=== PATIENT | female | born 1995 | race African-American/Black ===

== ENCOUNTER 2017-05-10 23:04 | Emergency (ER) | payer SELFPAY ==
[~2017-05-10] VITALS: Ht 162.6 cm; Wt 81.5 kg
[~2017-05-10 23:04] MED LIST: MACR100C2 PO
[2017-05-10 23:06] VITALS: BP 147/82; PULSE 98; RESP 18; TEMP 98.5; O2SAT 100
[2017-05-11] MEDS ORDERED: BACT800T5 PO (01:28)
--- NOTE | 2017-05-11 01:28 | PD ---
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 Patient reports it is getting progressively larger. Patient describes pain is a burning pressure-like in nature without radiation. Patient denies anything making it better. Patient denies doing anything for this. Denies any fevers, vaginal discharge, loss or change in bowel or bladder, abdominal pain, chest pain, shortness breath, or back pain. PFSH Past Medical History Diminished Hearing: No Immunizations Current: Yes ?: Not LMP: 04/14/17 : 2 Para: 1 Miscarriage: 1 Past Surgical History Section: Yes (x 1) Ear Surgery: Yes ( A CHILD) Gynecologic Surgery: Yes Tympanostomy Tube: Yes Social History Alcohol Use: No Tobacco Use: Yes (2PPD) Substance Use: Yes (SADAAK) Allergies-Medications (Allergen,Severity, Reaction): Coded Allergies: No Known Allergies (Unverified , 05/10/17) Reported Meds & Prescriptions Reported Meds & Active Scripts Active Bactrim DS (Sulfamethoxazole-Trimethoprim) 800-160 Mg Tab 1 Tab PO BID Review of Systems Except as stated in HPI: all other systems reviewed are Neg Physical Exam Narrative GENERAL: Well-developed, overly nourished, in no acute distress, and non-ill appearing. SKIN: Focused skin assessment warm and dry. HEAD: Atraumatic. Normocephalic. EYES: Pupils equal and round. EOMI. No scleral icterus. No injection or drainage. ENT: No nasal bleeding or discharge. Mucous membranes pink and moist. NECK: Trachea midline. Supple. No nuclear rigidity. RESPIRATORY: No accessory muscle use. No respiratory distress. GENITOURINARY: External genitalia shows a tender cyst of the right labia without erythema, induration, fluctuation. There is no obvious vaginal discharge appreciated. Exam is performed presence of the corporate staff accountant Madelyn at all times. MUSCULOSKELETAL: No obvious deformities. No clubbing. No cyanosis. No edema. Full range of motion. NEUROLOGICAL: Awake and alert. No obvious cranial nerve deficits. Motor grossly within normal limits. Normal speech. PSYCHIATRIC: Appropriate mood and affect; insight and judgment normal. Data Data Last Documented VS Vital Signs Date Time Temp Pulse Resp B/P Pulse Ox O2 Delivery O2 Flow Rate FiO2 05/10/17 23:06 98.5 98 18 147/82 100 Orders Mandatory Outpatient Referral (05/11/17 01:22) MDM Medical Decision Making Medical Screen Exam Complete: Yes Emergency Medical Condition: Yes Differential Diagnosis Bartholin's cyst, herpes, yeast infection, other Narrative Course Patient in no obvious distress upon re-evaluation. Patient was asked if they wanted to speak to my attending, which the patient did not wish to do at this time. Any questions/concerns in reference to patient diagnosis/condition discussed and clarified prior to patient's discharge. Reinforced sheer importance of close follow up with patient's primary physician or primary care clinic and [facility]PER[facility] HEL[facility]. Instructed patient to return to ED immediately, if symptoms return/worsen. Pt showed understanding of above instructions. Further instructions and recommendations were detailed in discharge paperwork. Pt ambulated without difficulty out of ED at discharge. Diagnosis Primary Impression: Labial cyst Referrals: [facility] Patient Instructions: General Instructions, Sitz Bath (GEN) Additional Instructions: Follow-up with your primary care physician and [facility]PER[facility] HEL[facility] in 3-5 days for reevaluation. Take all medication as prescribed. Use [id number] Tylenol and/or ibuprofen as needed for pain. Follow instructions on the packaging. Use sitz baths 2-3 times daily for symptomatic relief. Return to the emergency department if symptoms get worse. Med/Other Pt SpecificInfo: Prescription(s) given Scripts Sulfamethoxazole-Trimethoprim (Bactrim DS)800-160 Mg Tab1 Tab PO BID #20 TAB Ref 0 Prov:Kamille Ochoa DO 05/11/17 Disposition: 01 DISCHARGE HOME Condition: Stable Darion Fink May 11, 2017 01:28
== END 2017-05-11 01:42 | disposition home or self-care (01) ==
LOC: NEPD 23:04
DX: N90.7 Vulvar cyst (principal)
CPT/HCPCS: 99283

== ENCOUNTER 2017-05-28 05:23 | Emergency (ER) | payer SELFPAY ==
[~2017-05-28] VITALS: Ht 165.1 cm; Wt 75.0 kg
[~2017-05-28 05:23] MED LIST changes: +BACT800T5 PO; -MACR100C2 PO
[2017-05-28 05:25] VITALS: BP 149/103; PULSE 107; RESP 18; TEMP 98.4; O2SAT 99
[2017-05-28] MEDS ORDERED: oxyCODONE/ACETAMINOPHEN 5 MG/325 MG TAB PO ONE ×2 (07:30→14:45)
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
[2017-05-28 11:00] VITALS: BP 126/87; PULSE 86; RESP 18; TEMP 98.4; O2SAT 99
[2017-05-28] MEDS ORDERED: LIDOCAINE 1%/EPINEPHrine 1:100,000 SOLN 20 ML VIAL INFIL ONE ×2 (11:00→11:30)
[2017-05-28] MEDS ORDERED: LIDOCAINE 1%/EPINEPHrine 1:100,000 SOLN 30 ML VIAL ONE ×2 (11:21→13:21)
[2017-05-28] MEDS ORDERED: TRAM50TA PO (11:29)
[2017-05-28] MEDS ORDERED: NAPR500T PO (11:29)
--- NOTE | 2017-05-28 11:32 | PD ---
Physical Exam Narrative I was asked by Dr. Moreno to repair patient's laceration. Please see her documentation for full H&P. Data Data Last Documented VS Vital Signs Date Time Temp Pulse Resp B/P Pulse Ox O2 Delivery O2 Flow Rate FiO2 05/28/17 11:00 18 05/28/17 05:25 98.4 107 149/[address] Brain W/O Iv Contrast(Rout) (05/28/17 ) Ct Facial Bones W/O Iv Cont (05/28/17 ) Ed Urine Pregnancytest Poc (05/28/17 07:29) Hand, Complete ([id number]) (05/28/17 ) Wrist, Complete ([id number]) (05/28/17 ) Oxycodone-Acetamin 5-325 Mg (Percocet (05/28/17 07:30) Ct Cerv Spine W/O Contrast (05/28/17 ) Splint Or Brace Apply/Monitor (05/28/17 10:00) Fiberglass Splint Forearm Adul (05/28/17 ) Fiberglass Splint Forearm Adul (05/28/17 ) Sling Cradle Arm (05/28/17 ) Lidocai-Epi 1%-1:100,000 Inj (Xylocaine- (05/28/17 11:00) Lidocai-Epi 1%-1:100,000 Inj (Xylocaine- (05/28/17 11:21) MDM Supervised Visit with KIRSTEN: No Procedures Procedure Narrative LACERATION REPAIR LOCATION: Left temporal lobe LENGTH: Approximately 2 cm in total length NUMBER OF STITCHES/SIRIA: 4 siria REPAIR: Verbal consent was obtained. The area of the laceration was cleaned and prepped. The laceration was infiltrated with lidocaine with epi. The wound was copiously irrigated and explored without evidence of foreign body, bony involvement, ligament injury, tendon injury, or neurovascular injury. The wound was closed using siria. This was a single layer repair. The patient was advised to keep the affected area as clean and dry as possible using soap and water. Patient was advised to have siria removed in 5-7 days. There were no complications. Patient tolerated the procedure well. Diagnosis Primary Impression: Forehead laceration Additional Impression: Fracture, metacarpal Additional Instruction: Have siria removed in 5-7 days. Keep wound dry and clean as possible using soap and water. Do not soak or submerge wound. Scripts Naproxen 500 Mg [id number] Mg PO BID PRN (PAIN SCALE 4 TO 10) #10 TAB Ref 0 Prov:Fina Moreno MD 05/28/17 Tramadol 50 Mg Tab50 Mg PO Q6H PRN (PAIN) #10 TAB Prov:Fina Moreno MD 05/28/17 Disposition: 01 DISCHARGE HOME Condition: Stable Darion Fink May 28, 2017 11:32
[2017-05-28] MEDS ORDERED: LIDOCAINE HCL 1% PF 30 ML VIAL INFIL ONE (13:30)
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
[2017-05-28 15:00] VITALS: BP 121/89; PULSE 82; RESP 18; TEMP 98.4; O2SAT 99
== END 2017-05-28 15:44 | disposition home or self-care (01) ==
LOC: NED 05:23 → NEPE 15:44
DX: S01.81XA Laceration without foreign body of other part of head, initial encounter (principal); S62.323A Displaced fracture of shaft of third metacarpal bone, left hand, initial encounter for closed fracture; Y08.09XA Assault by strike by other specified type of sport equipment, initial encounter; F17.290 Nicotine dependence, other tobacco product, uncomplicated; F12.10 Cannabis abuse, uncomplicated
CPT/HCPCS: 12011; 26605; 70450; 70486; 72125; 73110; 73120; 73130; 84703

== ENCOUNTER 2017-06-04 08:30 | Emergency (ER) | payer SELFPAY ==
[~2017-06-04] VITALS: Ht 167.6 cm; Wt 85.0 kg
[~2017-06-04 08:30] MED LIST changes: -BACT800T5 PO; +NAPR500T PO; +TRAM50TA PO
[2017-06-04 08:31] VITALS: BP 119/69; PULSE 89; RESP 16; TEMP 99.9; O2SAT 100
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
== END 2017-06-04 09:45 | disposition home or self-care (01) ==
LOC: NEPK 08:30
DX: Z48.02 Encounter for removal of sutures (principal); S01.81XD Laceration without foreign body of other part of head, subsequent encounter; S62.323D Displaced fracture of shaft of third metacarpal bone, left hand, subsequent encounter for fracture with routine healing
CPT/HCPCS: 99281

== ENCOUNTER 2017-06-11 07:11 | Inpatient (IN) | payer SELFPAY ==
[~2017-06-11] VITALS: Ht 167.6 cm; Wt 81.1 kg
[2017-06-11] VITALS (9 sets, daily range): BP systolic 114–127; BP diastolic 57–74; PULSE 88–113; RESP 14–24; TEMP 98.3–100.4; O2SAT 97–99
[2017-06-11 07:56] LABS: BASOPHIL % 0.1 % (0.0-2.0); HEMATOCRIT 33.9 % (35.0-46.0); LYMPH % 4.5 % (9.0-44.0); LYMPHOCYTE # 1.4 TH/MM3 (1.0-4.8); MEAN CELL VOLUME 81.3 FL (80.0-100.0); MEAN CORPUSCULAR HEMOGLOBIN 26.1 PG (27.0-34.0); MEAN CORPUSCULAR HGB CONC 32.1 % (32.0-36.0); MONO % 2.5 % (0.0-8.0); NEUT % 92.9 % (16.0-70.0); PLATELET COUNT 356 TH/MM3 (150-450); RED BLOOD COUNT 4.17 MIL/MM3 (4.00-5.30); RED CELL DISTRIBUTION WIDTH 16.8 % (11.6-17.2); WHITE BLOOD COUNT 31.2 TH/MM3 (4.0-11.0)
[2017-06-11 07:58] LABS: HEMO FLAGS AUTO DIFF
--- NOTE | 2017-06-11 08:03 | PD ---
HPI Chief Complaint: Abdominal Pain Time Seen by Provider: 07:23 Travel History International Travel<30 days: No Contact w/Intl Traveler<30days: No Traveled to known affect area: No History of Present Illness HPI 21yo F with no significant PMH presents to the ED with c/o diffuse abdominal pain since yesterday. Denies any fever, chest pain, sob, n/v, vaginal bleeding or discharge, dysuria, hematuria or diarrhea. Pt denies any surgical history. PFSH Past Medical History Medical History: Denies Significant Hx Diminished Hearing: No Immunizations Current: Yes Influenza Vaccination: No ?: Not LMP: 06/09 : 2 Para: 1 Miscarriage: 1 Past Surgical History Section: Yes (x 1) Ear Surgery: Yes ( A CHILD) Gynecologic Surgery: Yes Tympanostomy Tube: Yes Social History Alcohol Use: No Tobacco Use: Yes (2 PPD) Substance Use: No (DENIES) Allergies-Medications (Allergen,Severity, Reaction): Coded Allergies: No Known Allergies (Unverified , 06/11/17) Reported Meds & Prescriptions Reported Meds & Active Scripts Active No Active Prescriptions or Reported Medications Review of Systems Except as stated in HPI: all other systems reviewed are Neg Physical Exam Narrative GENERAL: 21yo F not in distress. SKIN: Focused skin assessment warm/dry. HEAD: Atraumatic. Normocephalic. CARDIOVASCULAR: Regular rate and rhythm. No murmur appreciated. RESPIRATORY: No accessory muscle use. Clear to auscultation. Breath sounds equal bilaterally. GASTROINTESTINAL: Abdomen soft, mild tenderness to palpation diffusely. No rebound tenderness or guarding. MUSCULOSKELETAL: No obvious deformities. No clubbing. No cyanosis. No edema. NEUROLOGICAL: Awake and alert. No obvious cranial nerve deficits. Motor grossly within normal limits. Normal speech. PSYCHIATRIC: Appropriate mood and affect; insight and judgment normal. Data Data Last Documented VS Vital Signs Date Time Temp Pulse Resp B/P (MAP) Pulse Ox O2 Delivery O2 Flow Rate FiO2 06/11/17 11:14 93 16 117/65 (82) 99 Room Air 06/11/17 09:18 98.4 Orders Orders Complete Blood Count With Diff (06/11/17 07:27) Comprehensive Metabolic Panel (06/11/17 07:27) Lipase (06/11/17 07:27) Urinalysis - C+S If Indicated (06/11/17 07:27) Iv Access Insert/Monitor (06/11/17 07:27) Ecg Monitoring (06/11/17 07:27) Oximetry (06/11/17 07:27) Sodium Chloride 0.9% Flush (Ns Flush) (06/11/17 07:30) Ed Urine Pregnancytest Poc (06/11/17 07:27) Bhcg Screen Qualitative (06/11/17 07:27) Ketorolac Inj (Toradol Inj) (06/11/17 08:15) Blood Culture (06/11/17 09:04) Lactic Acid Sepsis Protocol (06/11/17 09:04) Ct Abd/Pel W Iv Contrast(Rout) (06/11/17 ) Piperacil-Tazo 3.375 Gm Premix (Zosyn 3. (06/11/17 09:15) Morphine Inj (Morphine Inj) (06/11/17 09:15) Sodium Chlor 0.9% 1000 Ml Inj (Ns 1000 M (06/11/17 09:15) Potassium Chloride (Kcl) (06/11/17 09:30) Iohexol 350 Inj (Omnipaque 350 Inj) (06/11/17 09:59) Cath For Specimen (06/11/17 11:06) Us Pelvis Comp Youth Specialist/Non-Preg (06/11/17 ) Azithromycin Powd Pack (Zithromax Powd P (06/11/17 11:15) Sodium Chlor 0.9% 1000 Ml Inj (Ns 1000 M (06/11/17 11:30) Sodium Chlor 0.9% 1000 Ml Inj (Ns 1000 M (06/11/17 11:30) Gc And Chlamydia Pcr (06/11/17 11:22) Wet Prep Profile (06/11/17 11:22) Urine Culture (06/11/17 11:50) Admit Order (Ed Use Only) (06/11/17 12:37) Labs Laboratory Tests Test 06/11/17 07:39 06/11/17 10:21 06/11/17 11:26 06/11/17 11:50 White Blood Count 31.2 TH/MM3 Red Blood Count 4.17 MIL/MM3 Hemoglobin 10.9 GM/DL Hematocrit 33.9 % Mean Corpuscular Volume 81.3 FL Mean Corpuscular Hemoglobin 26.1 PG Mean Corpuscular Hemoglobin Concent 32.1 % Red Cell Distribution Width 16.8 % Platelet Count 356 TH/MM3 Mean Platelet Volume 7.6 FL Neutrophils (%) (Auto) 92.9 % Lymphocytes (%) (Auto) 4.5 % Monocytes (%) (Auto) 2.5 % Eosinophils (%) (Auto) 0.0 % Basophils (%) (Auto) 0.1 % Neutrophils # (Auto) 29.0 TH/MM3 Lymphocytes # (Auto) 1.4 TH/MM3 Monocytes # (Auto) 0.8 TH/MM3 Eosinophils # (Auto) 0.0 TH/MM3 Basophils # (Auto) 0.0 TH/MM3 CBC Comment AUTO DIFF Differential Total Cells Counted 100 Neutrophils % (Manual) 80 % Band Neutrophils % 11 % Lymphocytes % 8 % Monocytes % 1 % Neutrophils # (Manual) 28.4 TH/MM3 Differential Comment FINAL DIFF MANUAL Platelet Estimate HIGH Platelet Morphology Comment NORMAL Ovalocytes 1+ Blood Smear Pathologist Review Blood Urea Nitrogen 10 MG/DL Creatinine 0.80 MG/DL Random Glucose 107 MG/DL Total Protein 7.7 GM/DL Albumin 3.9 GM/DL Calcium Level 8.6 MG/DL Alkaline Phosphatase 67 U/L Aspartate Amino Transf (AST/SGOT) 31 U/L Alanine Aminotransferase (ALT/SGPT) 28 U/L Total Bilirubin 0.8 MG/DL Sodium Level 138 MEQ/L Potassium Level 3.2 MEQ/L Chloride Level 106 MEQ/L Carbon Dioxide Level 22.7 MEQ/L Anion Gap 9 MEQ/L Estimat Glomerular Filtration Rate 110 ML/MIN Lipase 49 U/L Beta HCG, Qualitative LESS THAN 1 MIU/ML Lactic Acid Level 0.6 mmol/L Clue Cells (Wet Prep) NONE SEEN Vaginal Trichomonas (Wet Prep) NONE SEEN Vaginal Yeast (Wet Prep) NONE SEEN Chlamydia trachomatis DNA (PCR) NOT DETECTED Neisseria gonorrhoeae DNA (PCR) DETECTED Urine Color YELLOW Urine Turbidity CLEAR Urine pH 6.0 Urine Specific [place] GREATER THAN 1.050 Urine Protein 30 mg/dL Urine Glucose (UA) NEG mg/dL Urine Ketones 80 mg/dL Urine Occult Blood SMALL Urine Nitrite POS Urine Bilirubin NEG Urine Urobilinogen LESS THAN 2.0 MG/DL Urine Leukocyte Esterase SMALL Urine RBC 6 /hpf Urine WBC 21 /hpf Urine Squamous Epithelial Cells 4 /hpf Urine Bacteria FEW /hpf Urine Mucus MOD /lpf Microscopic Urinalysis Comment CULTURE INDICATED MDM Medical Decision Making Medical Screen Exam Complete: Yes Emergency Medical Condition: Yes Differential Diagnosis Gastritis vs. viral syndrome Narrative Course 21yo F with abdominal pain that is diffuse. Labs reviewed, leukocytosis at 31.2. Mild hyponatremia at 3.2, replaced orally. Lipase normal. negative. Lactic acid was added and it was normal. Pt empirically given NS IVF and zosyn. Pt was still unable to give urine so cath was obtained and pt is clinically dry. Pt given NS IVF x2 more. Pelvic exam was added and there was some white vaginal discharge. Very mild CMT. No adnexal tenderness. Given the elevated leukocyte, will obtain US transvaginal to r/o ovarian abscess. US pelvis unremarkable. Azithromycin empirically added. UA finally obtained and showed positive nitrite. This is likely source of abdominal pain. Wet prep negative. CTa/p showed right renal cyst, simple. Discussed with resident physicians and accepted to their service. Critical Care Narrative Aggregate critical care time was 50 minutes. Time to perform other separately billable procedures was not included in the critical care time. My time did not include minutes spent treating any other patients simultaneously or on activities that did not directly contribute to the patient's treatment. The services I provided to this patient were to treat and/or prevent clinically significant deterioration that could result in: cardiovascular collapse or . I provided critical care services requiring my management, as noted below: Chart data review, documentation time, medication orders and management, vital sign assessments/reviewing monitor data, ordering and reviewing lab tests, ordering and interpreting/reviewing x-rays and diagnostic studies, care of the patient and discussion of the patient with the admitting physicians. Diagnosis Primary Impression: Urinary tract infection Qualified Codes: N39.0 - Urinary tract infection, site not specified; R31.9 - Hematuria, unspecified Admitting Information Admitting Physician Requests: Admit Scripts No Active Prescriptions or Reported Meds Laura Mosqueda DO Jun 11, 2017 08:03
[2017-06-11 08:09] LABS: ANION GAP 9 MEQ/L (5-15); AST (GOT) 31 U/L (15-37); BICARBONATE 22.7 MEQ/L (21.0-32.0); BLOOD UREA NITROGEN 10 MG/DL (7-18); CHLORIDE 106 MEQ/L (98-107); GLOMERULAR FILTRATION RATE 110 ML/MIN (>89); POTASSIUM 3.2 MEQ/L (3.5-5.1); SODIUM (NA) 138 MEQ/L (136-145)
[2017-06-11] MEDS ORDERED: KETOROLAC TROMETHAMINE 30 MG/ML (IVP) VIAL IV PUSH ONE (08:15)
[2017-06-11 08:20] LABS: ALKALINE PHOSPHATASE 67 U/L (45-117); ALT (GPT) 28 U/L (10-53); TOTAL BILIRUBIN ADULT 0.8 MG/DL (0.2-1.0)
[2017-06-11 08:22] LABS: BHCG SCREEN QUALITATIVE LESS THAN 1 MIU/ML (0-5)
[2017-06-11 08:42] LABS: BANDS 11 % (0-6); NEUTROPHIL # MANUAL DIFF 28.4 TH/MM3 (1.8-7.7); POLYS (SEG NEUTROPHILS) 80 % (16-70); WBC DIFF SAMPLE 100
[2017-06-11 08:43] LABS: OVALOCYTES 1+ (NORMAL); PLATELET ESTIMATE SMEAR HIGH (NORMAL); PLATELET MORPHOLOGY NORMAL (NORMAL); SCAN/DIFF FINAL DIFF MANUAL
[2017-06-11] MEDS: SODIUM CHLORIDE 0.9% FLUSH 10 ML FLUSH IV FLUSH PRN ×2 (08:47→10:23)
[2017-06-11] MEDS ORDERED: SODIUM CHLOR 0.9% 1000 ML INJ 1,000 ML IV ONE ×3 (09:15→11:30)
[2017-06-11] MEDS ORDERED: PIPERACIL-TAZO 3.375 GM PREMIX 50 ML IV ONE (09:15)
[2017-06-11] MEDS ORDERED: MORPHINE SULFATE 4 MG/ML INJ IV PUSH ONE (09:15)
[2017-06-11] MEDS ORDERED: POTASSIUM CHLORIDE 20 MEQ CONTROLLED RELEASE TAB PO ONE (09:30)
[2017-06-11] MEDS ORDERED: IOHEXOL 350 MG/ML 10 ML VIAL (for RAD DIAG) IVCONTRAST ONE (09:59)
--- NOTE | 2017-06-11 10:18 | RADRPT ---
EXAM DATE/TIME: 06/11/2017 09:53 [facility] COMPARISON: No previous studies available for comparison. INDICATIONS : Diffuse abdominal pain. IV CONTRAST: 85 cc Omnipaque 350 (iohexol) IV ORAL CONTRAST: No oral contrast ingested. RADIATION DOSE: 9.96 CTDIvol (mGy) MEDICAL HISTORY : None SURGICAL HISTORY : None. ENCOUNTER: Initial ACUITY: 2 days PAIN SCALE: 4/10 LOCATION: Bilateral abdomen TECHNIQUE: Volumetric scanning of the abdomen and pelvis was performed. Using automated exposure control and ad justment of the mA and/or kV according to patient size, radiation dose was kept as low as reasonably achievable to obtain optimal diagnostic quality images. DICOM format image data is available electro nically for review and comparison. FINDINGS: There is bilateral L5 spondylolysis with trace spondylolisthesis of L5 on S1. Lung bases are clear. N o pleural or pericardial effusions are identified. Liver, gallbladder, kidneys, spleen, pancreas unre markable. There is a cyst at the midpole of the right kidney identified measuring 3 x 1 cm in AP dime nsion. The urinary bladder, uterus and adnexa are unremarkable. Small bowel, large bowel and appendix are normal. No inflammatory changes are identified in the abdomen or pelvis. CONCLUSION: Right renal cyst, simple in appearance. L5 spondylolysis. Lai Segura MD on June 11, 2017 at 10:13 Board Certified Radiologist. This report was verified electronically.
[2017-06-11] MEDS ORDERED: AZITHROMYCIN PWD FOR SUSP 1 GM PACKET PO ONE (11:15)
[2017-06-11 12:06] LABS: BACTERIA, URINE FEW /hpf; BLOOD, URINE SMALL (NEG); COMMENT (UR) CULTURE INDICATED; CULTURE IF INDICATED CULTURE INDICATED; GLUCOSE,URINE NEG (NEG); KETONE, URINE 80 mg/dL (NEG); MUCUS URINE MOD /lpf (OCC); NITRITE,URINE POS (NEG); SQUAMOUS EPITHELIAL CELL URINE 4 /hpf (0-5); URINE COLOR YELLOW (YELLW/STRAW)
--- NOTE | 2017-06-11 13:02 | RADRPT ---
EXAM DATE/TIME: 06/11/2017 11:24 [facility] COMPARISON: No previous studies available for comparison. INDICATIONS : Left pelvic pain. Leukocytosis, possible tubo-ovarian abscess. MEDICAL HISTORY : Pelvic pain. SURGICAL HISTORY : section. Ear surgery. Tympanostomy tube. ENCOUNTER: Initial ACUITY: 1 day PAIN SCORE: 8/10 LOCATION: Bilateral pelvis MEASUREMENTS: UTERUS: 9.6 x 5.2 x 3.9 cm ENDOMETRIAL STRIPE: 7 mm RIGHT OVARY: 3.0 x 2.8 x 2.3 cm LEFT OVARY: 3.2 x 2.6 x 2.6 cm FINDINGS: UTERUS: The myometrium has homogeneous echotexture without mass. RIGHT OVARY: Ovary contains no mass or significant cystic lesion. LEFT OVARY: Ovary contains no mass or significant cystic lesion. MISCELLANEOUS: No free fluid. There is some echogenic debris within the urinary bladder of uncertain etiology CONCLUSION: 1. Echogenic debris within the urinary bladder of uncertain etiology. 2. Otherwise, uterus and ovaries are sonographically normal. Jaime Esqueda MD on June 11, 2017 at 12:58 Board Certified Radiologist. This report was verified electronically.
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
[2017-06-11] MEDS ORDERED: SODIUM CHLORIDE 0.9% FLUSH 10 ML FLUSH IV FLUSH PRN ×2 (14:15→15:00)
[2017-06-11] MEDS ORDERED: ACETAMINOPHEN 325 MG TAB PO PRN (15:00)
[2017-06-11] MEDS ORDERED: IBUPROFEN 600 MG TAB PO PRN (15:00)
[2017-06-11] MEDS ORDERED: PHENAZOPYRIDINE HCL 200 MG TAB PO PRN (15:00)
[2017-06-11] MEDS ORDERED: cloNIDine HCL 0.1 MG TAB PO PRN (15:30)
[2017-06-11] MEDS ORDERED: RESP: ALBUTEROL 2.5 MG/IPRATROPIUM 0.5 MG NEB (PRN) NEB (15:30)
[2017-06-11] MEDS ORDERED: LOPERAMIDE HCL 2 MG CAP PO PRN (15:30)
[2017-06-11] MEDS ORDERED: DOCUSATE SODIUM 50 MG/SENNA 8.6 MG TAB PO PRN (15:30)
[2017-06-11 16:11] LABS: CHLAMYDIA PCR NOT DETECTED (NOT DETECT); NEISSERIA PCR DETECTED (NOT DETECT)
[2017-06-11] MEDS: LACTOBACILLUS ACIDOPHILUS TAB PO SCH (19:11)
[2017-06-11] MEDS: SODIUM CHLOR 0.9% 1000 ML INJ 1,000 ML IV SCH ×2 (19:11→21:38)
[2017-06-11] MEDS: SODIUM CHLORIDE 0.9% FLUSH 10 ML FLUSH IV FLUSH SCH (20:59)
[2017-06-11] MEDS ORDERED: SULFAMETHOXAZOLE-TRIMETHOPRIM DS 800-160 MG TAB PO SCH (21:00)
[2017-06-11] MEDS ORDERED: SODIUM CHLORIDE 0.9% FLUSH 10 ML FLUSH IV FLUSH SCH (21:00)
[2017-06-11] MEDS: HEPARIN SODIUM - SQ 10,000 UNITS/ML VIAL SQ SCH (22:21)
[2017-06-11] MEDS: DOXYCYCLINE HYCLATE 100 MG CAP PO SCH (23:49)
[2017-06-11] MEDS: KETOROLAC TROMETHAMINE 30 MG/ML (IVP) VIAL IVP PRN (23:49)
[2017-06-11] MEDS: ONDANSETRON HCL 4 MG/2 ML VIAL IV PRN (23:49)
[2017-06-12] VITALS: BP 118/60; PULSE 74; RESP 18; TEMP 98.1; O2SAT 98
[2017-06-12] MEDS: ceFOXitin INJ 2 GM in SODIUM CHLORIDE 0.9% INJ 100 ML IV SCH ×3 (00:12→11:22)
[2017-06-12 04:00] VITALS: BP 127/75; PULSE 78; RESP 18; TEMP 97.6; O2SAT 93
[2017-06-12] MEDS: SODIUM CHLOR 0.9% 1000 ML INJ 1,000 ML IV SCH ×6 (04:18→22:15)
[2017-06-12] MEDS: HEPARIN SODIUM - SQ 10,000 UNITS/ML VIAL SQ SCH ×3 (06:09→22:44)
[2017-06-12 06:17] LABS: AUTOMATED NEUTROPHIL # 19.5 TH/MM3 (1.8-7.7); BASOPHIL # 0.1 TH/MM3 (0-0.2); BASOPHIL % 0.3 % (0.0-2.0); EOSINOPHIL # 0.1 TH/MM3 (0-0.4); EOSINOPHIL % 0.6 % (0.0-4.0); HEMATOCRIT 29.6 % (35.0-46.0); HEMO FLAGS DIFF FINAL; LYMPHOCYTE # 3.1 TH/MM3 (1.0-4.8); MEAN CELL VOLUME 82.3 FL (80.0-100.0); MEAN CORPUSCULAR HEMOGLOBIN 26.4 PG (27.0-34.0); MEAN CORPUSCULAR HGB CONC 32.1 % (32.0-36.0); NEUT % 82.1 % (16.0-70.0); PLATELET COUNT 263 TH/MM3 (150-450); RED CELL DISTRIBUTION WIDTH 17.4 % (11.6-17.2); WHITE BLOOD COUNT 23.8 TH/MM3 (4.0-11.0)
[2017-06-12] MEDS: ONDANSETRON HCL 4 MG/2 ML VIAL IV PRN (06:24)
[2017-06-12 06:52] LABS: BICARBONATE 22.3 MEQ/L (21.0-32.0)
[2017-06-12 06:58] LABS: POTASSIUM 2.9 MEQ/L (3.5-5.1)
[2017-06-12] MEDS: SODIUM CHLORIDE 0.9% FLUSH 10 ML FLUSH IV FLUSH SCH ×2 (07:22→20:18)
[2017-06-12 07:55] VITALS: PULSE 77
[2017-06-12 08:00] VITALS: BP 141/88; PULSE 90; RESP 20; TEMP 98.1; O2SAT 98
[2017-06-12] MEDS: LACTOBACILLUS ACIDOPHILUS TAB PO SCH ×3 (08:08→17:55)
[2017-06-12] MEDS: DOXYCYCLINE HYCLATE 100 MG CAP PO SCH (08:08)
[2017-06-12] MEDS: ACETAMINOPHEN/HYDROcodone 325 MG/5 MG TAB PO PRN ×2 (10:03→14:19)
[2017-06-12] MEDS ORDERED: POTASSIUM CHLORIDE 10 MEQ CAP PO ONE (11:00)
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
[2017-06-12] MEDS ORDERED: cefTRIAXone INJ 1,000 MG in SODIUM CHLORIDE 0.9% INJ 100 ML IV SCH (15:00)
[2017-06-12 16:00] VITALS: BP 142/74; PULSE 84; RESP 19; TEMP 98; O2SAT 99
[2017-06-12 20:00] VITALS: BP 135/74; PULSE 91; PULSE 95; RESP 18; TEMP 99.7; O2SAT 99
[2017-06-12] MEDS: KETOROLAC TROMETHAMINE 30 MG/ML (IVP) VIAL IVP PRN (20:16)
[2017-06-13] VITALS (7 sets, daily range): BP systolic 119–139; BP diastolic 63–92; PULSE 69–93; RESP 16–18; TEMP 97.3–99.3; O2SAT 94–100
[2017-06-13] MEDS: SODIUM CHLOR 0.9% 1000 ML INJ 1,000 ML IV SCH ×2 (01:48→17:30)
[2017-06-13] MEDS: HEPARIN SODIUM - SQ 10,000 UNITS/ML VIAL SQ SCH ×3 (05:41→21:55)
[2017-06-13 08:26] LABS: AUTOMATED NEUTROPHIL # 10.8 TH/MM3 (1.8-7.7); BASOPHIL % 0.1 % (0.0-2.0); EOSINOPHIL % 0.4 % (0.0-4.0); HEMATOCRIT 28.2 % (35.0-46.0); HEMO FLAGS DIFF FINAL; LYMPH % 12.9 % (9.0-44.0); LYMPHOCYTE # 1.7 TH/MM3 (1.0-4.8); MEAN CELL VOLUME 80.9 FL (80.0-100.0); MEAN CORPUSCULAR HEMOGLOBIN 25.6 PG (27.0-34.0); MEAN CORPUSCULAR HGB CONC 31.7 % (32.0-36.0); MONO % 5.2 % (0.0-8.0); NEUT % 81.4 % (16.0-70.0); PLATELET COUNT 279 TH/MM3 (150-450); RED BLOOD COUNT 3.49 MIL/MM3 (4.00-5.30); RED CELL DISTRIBUTION WIDTH 16.9 % (11.6-17.2); WHITE BLOOD COUNT 13.3 TH/MM3 (4.0-11.0)
[2017-06-13] MEDS: SODIUM CHLORIDE 0.9% FLUSH 10 ML FLUSH IV FLUSH SCH ×2 (08:49→21:56)
[2017-06-13] MEDS: LACTOBACILLUS ACIDOPHILUS TAB PO SCH ×3 (08:49→17:29)
[2017-06-13] MEDS: ACETAMINOPHEN/HYDROcodone 325 MG/5 MG TAB PO PRN ×3 (08:50→21:55)
[2017-06-13 08:56] LABS: BICARBONATE 20.8 MEQ/L (21.0-32.0)
[2017-06-13 09:27] LABS: POTASSIUM 2.9 MEQ/L (3.5-5.1)
[2017-06-13] MEDS ORDERED: POTASSIUM CHLORIDE 10 MEQ CONTROLLED RELEASE TAB PO ONE ×2 (10:00→15:00)
[2017-06-13] MEDS ORDERED: SULFAMETHOXAZOLE-TRIMETHOPRIM DS 800-160 MG TAB PO SCH (10:00)
--- NOTE | 2017-06-13 10:37 | HHI.FPPN ---
Subjective Remarks Patient seen and examined this morning for medical team. No acute events overnight per nursing staff. Patient remained afebrile overnight with maximum temperature of 99.7. Patient continues to complain of ABD and suprapubic pain. She also endorses multiple episodes of watery diarrhea overnight without blood. Medical team explained her UTI will need further evaluation by infectious disease as the E. coli is ESBL positive. We also counseled her on illicit drug cessation. She states that she will "need help to stop using Flakka," but does have interest in stopping. Otherwise she has no other complaints. She denies any fevers, chills, SOB, chest pain, or calf tenderness. (Liang Garcia MD R2) Objective Vitals Vital Signs Date Time Temp Pulse Resp B/P (MAP) Pulse Ox O2 Delivery O2 Flow Rate FiO2 06/13/17 08:46 Room Air 06/13/17 08:00 99.0 93 18 139/63 (88) 94 06/13/17 04:00 98.2 86 18 119/67 (84) 95 06/13/17 04:00 Room Air 06/13/17 00:00 Room Air 06/13/17 00:00 99.3 83 16 128/83 (98) 100 06/12/17 20:00 91 06/12/17 20:00 99.7 95 18 135/74 (94) 99 06/12/17 20:00 Room Air 06/12/17 16:00 98.0 84 19 142/74 (96) 99 06/12/17 12:34 Room Air 21 I/O 06/12/17 06/12/17 06/12/17 06/13/17 06/13/17 06/13/17 06:59 14:59 22:59 06:59 14:59 22:59 Intake Total 1200 ml 120 ml 860 ml 1720 ml Output Total 550 ml 425 ml Balance 1200 ml 120 ml 310 ml 1295 ml Intake Oral 120 ml 760 ml 720 ml IV Total 1200 ml 100 ml 1000 ml Output Urine Total 550 ml 425 ml # Voids 2 # Bowel Movements 0 (Liang Garcia MD R2) Result Diagram: 06/13/17 0749 06/13/17 0749 Objective Remarks GENERAL: Well-nourished, well-developed female lying in bed in no acute distress. SKIN: Warm and dry. No rash. Bilateral black eyes. HEENT: Normocephalic with left lateral scalp wound. Wound healing appropriately without signs of infection. EOMI. No rhinorrhea. MMM. No JVD or LAD appreciated. CARDIOVASCULAR: Regular rate and rhythm without obvious murmurs, gallops, or rubs. RESPIRATORY: Clear to auscultation bilaterally with no CRW. No increased work of breathing. GASTROINTESTINAL: ABD soft and tender to moderate palpation in all four quadrants with suprapubic tenderness. Positive bowel sounds. No masses appreciated. MUSCULOSKELETAL: No cyanosis or edema. Strength grossly WNL. No calf tenderness. Left hand with obvious swelling. BACK: Nontender without obvious deformity. No CVA tenderness. NEURO/PSYCH: Afocal. Awake, alert, and oriented x3. Normal speech and judgement. (Liang Garcia MD R2) A/P Assessment and Plan Ms. Mercedes is a 21 y/o F with no significant past medical history presenting to the ER with diffuse abdominal pain secondary to pyelonephritis versus PID. Discharge Planning Pending infectious disease recommendation as she has an ESBL Escherichia coli urinary tract infection. (Liang Garcia MD R2) Attending Attestation Patient seen and examined. Case reviewed and discussed with the resident team. Agree with plan of care as discussed with me and documented in the resident note. she appears "brighter" in her affect today though she still complains about abdominal pain some of which could be cramping from her diarrhea. fortunately, her blood was clear. appreciate help ID with her ESBL. can ask case management for local resources available for assisting drug abusers (Jennifer Houston MD) Problem List: (1) Pyelonephritis ICD Codes: N12 - Tubulo-interstitial nephritis, not specified as acute or chronic Status: Acute Plan: Patient presenting with dysuria, incontinence, diffuse abdominal pain, and nausea/vomiting with UA concerning for UTI. -Abdominal/pelvis CT: Right renal cysts, simple in appearance. L5 spondylosis. -Pelvic ultrasound: Echogenic debris within the urinary bladder of uncertain etiology. Otherwise, uterus and ovaries are sonographically normal. -CBC: WBC 31.2 -CMP: Potassium 3.2 -UA: Specific gravity greater than 1.05, ketones 80, small occult blood, positive nitrite, small leukocyte esterase, 6 rbc, 21 WBC, few bacteria -Lipase: 49 -Beta hCG: Less than 1 -Lactic acid: 0.6 -Blood cultures 2: Negative to date -Urine culture: ESBL positive Escherichia coli (sensitive to Bactrim) -GC and chlamydia PCR: Chlamydia negative, gonorrhea positive (treated with Rocephin and azithromycin in ER) -Wet prep: Negative -Infectious disease consulted for ESBL positive UTI, appreciate recommendations Medications: -Zosyn, ceftriaxone, and 1 g of azithromycin given in ER -Cefoxitin x3 and doxycycline x2 given for PID coverage, discontinued as ER evaluation for PID was negative -Toradol and morphine given in ER -Bactrim DS twice a day as culture is sensitive -Pyridium 200 mg 3 times a day -Normal saline at 100 mL per hour -Ibuprofen when necessary for pain 1-5 -[place] 5-325 when necessary for pain 6-10 -Toradol when necessary for breakthrough pain (2) Leukocytosis ICD Codes: D72.829 - Elevated white blood cell count, unspecified Status: Acute Plan: Patient with extensive leukocytosis to 31.2 -CBC: WBC 31.2 with neutrophils of 92.9% on admission, currently downtrending -Blood smear: Negative for abnormal process -Please see plan as above -C. difficile: Pending (3) Nutrition, metabolism, and development symptoms ICD Codes: R63.8 - Other symptoms and signs concerning food and fluid intake Status: Acute Plan: -Fluids: Normal saline at 100 mL per hour -Diet: Regular as tolerated -Electrolytes: Hypokalemia, replaced, repeat BMP at 1900 -Prophylaxis: DuoNeb's when necessary for shortness of breath, docusate when necessary for constipation, loperamide when necessary for diarrhea, clonidine when necessary for blood pressure greater than 180/100, Vistaril when necessary for insomnia, Tylenol when necessary for fever (4) No contraindication to deep vein thrombosis (DVT) prophylaxis ICD Codes: Z78.9 - Other specified health status Status: Acute Plan: -Heparin 5000 units every 8 hours -SCD/TEDs (Liang Garcia MD R2) Problem Qualifiers (1) Leukocytosis: Qualified Codes: D72.825 - Bandemia Liang Garcia MD R2 Jun 13, 2017 10:37 Jennifer Houston MD Jun 13, 2017 13:59
[2017-06-13] MEDS: KETOROLAC TROMETHAMINE 30 MG/ML (IVP) VIAL IVP PRN (12:09)
[2017-06-13] MEDS ORDERED: MISCELLANEOUS PHARMACY INFORMATION XX PRN ×2 (13:30)
[2017-06-13] MEDS ORDERED: ASP: Other exception documentation: ( ) PRN (13:30)
--- NOTE | 2017-06-13 13:50 | MB ---
cc: ALEJANDRA PAGAN MD DATE OF CONSULTATION: 06/13/[address] Garcia. REASON FOR CONSULTATION A 21-year-old with E-coli ESBL positive pyelonephritis. HISTORY OF PRESENT ILLNESS This is a 21-year-old black female who presented to the emergency department on 06/11 with abdominal pain of a diffuse nature. The patient states that the pain began suddenly. She reported the pain was as high as 10 over 10 scale and mostly over the suprapubic region. She reportedly was having problems with urination for 2 weeks, mostly dysuria. She developed nausea, vomiting and worsening abdominal pain on the night before she presented to the emergency department. She was evaluated and tested positive for gonorrhea. Urine culture was also obtained and came back showing ESBL E-coli. The urinalysis contained 21 white cells and was nitrite positive. The patient notes that she is having loose stools. She reports to me that she has diarrhea today. She also has poor appetite and states that whenever she eats she feels like she has to use the bathroom. She denies fever or chills. CT scan of the abdomen showed a simple renal cyst. This was noted to be located at the mid pole of the right kidney. A pelvic ultrasound revealed echogenic debris within the urinary bladder. The patient tells me that she still has urinary urgency and burning on urination. PAST MEDICAL HISTORY Denies past medical illnesses. ALLERGIES NO KNOWN DRUG ALLERGIES. MEDICATIONS 1. Bactrim. 2. Vistaril. 3. Lactinex. 4. Toradol. 5. [place] 5. 6. Zofran. SOCIAL HISTORY The patient smokes half-a-pack of cigarettes a day. She denies alcohol use. She uses illicit drugs in the form of Flakka which she smokes. She lives with her mom and step dad and her daughter. FAMILY HISTORY Noncontributory. REVIEW OF SYSTEMS Pertinent as mentioned above. Otherwise, negative on 10-point review. PHYSICAL EXAMINATION GENERAL: She is a well-developed female who is in no acute distress. She is awake and alert and oriented. VITAL SIGNS: Temperature 97.3, BP 128/72, respirations 18, heart rate 80. HEENT: Head is atraumatic. Extraocular movements grossly intact. Pupils reactive to light without icterus. Oropharynx no visible lesions. NECK: Supple. No adenopathy. LUNGS: Clear breath sounds. HEART: Regular rate and rhythm. No murmurs. No rubs. No gallops. ABDOMEN: Tenderness at the left lower quadrant and also over the suprapubic area, mostly on the left side. No rebound. RECTAL: Not performed. EXTREMITIES: No clubbing, cyanosis or edema. SKIN: No rash. NEURO: No gross focal findings. PSYCHIATRIC: The patient is calm and cooperative. LABORATORY DATA WBC 13.3, platelet count 279, hemoglobin 8.9, creatinine 0.65, estimated GFR 139, potassium 2.9. Liver function tests normal. Blood culture had no growth in 2 days. IMPRESSION UTI due to ESBL E-coli. The patient also diagnosed with gonorrhea and treated. Leukocytosis from infection. RECOMMENDATIONS 1. Discontinue Bactrim. 2. Begin ertapenem. 3. Repeat the urine culture after a couple days on the IV ertapenem to check for clearance of the E-coli. I recommend doing the repeat urine culture on Saturday and if it is clear, then she can be discharged. I also recommend getting the stool C-difficile toxin. Continue to treat with Lactinex and if the C-difficile toxin is positive she should be treated with metronidazole. Thank you for this consultation. I will follow the patient as needed. If the urine culture comes back negative and the stool C-difficile toxin is negative, then she can be discharged. Alejandra Pagan MD FD/LEONEL /1:07 PM /1:29 PM
[2017-06-13] MEDS: ERTAPENEM INJ 1,000 MG in SODIUM CHLORIDE 0.9% INJ 100 ML IV SCH (15:09)
[2017-06-13 21:06] LABS: BICARBONATE 22.4 MEQ/L (21.0-32.0); POTASSIUM 3.5 MEQ/L (3.5-5.1)
[2017-06-14] VITALS (9 sets, daily range): BP systolic 129–149; BP diastolic 83–95; PULSE 55–82; RESP 16–20; TEMP 97.7–98.9; O2SAT 96–100
[2017-06-14] MEDS: SODIUM CHLOR 0.9% 1000 ML INJ 1,000 ML IV SCH ×3 (01:46→21:02)
[2017-06-14] MEDS: ACETAMINOPHEN/HYDROcodone 325 MG/5 MG TAB PO PRN ×3 (05:23→21:03)
[2017-06-14] MEDS: HEPARIN SODIUM - SQ 10,000 UNITS/ML VIAL SQ SCH ×3 (05:24→21:02)
[2017-06-14 08:31] LABS: HEMATOCRIT 25.5 % (35.0-46.0); MEAN CORPUSCULAR HEMOGLOBIN 26.1 PG (27.0-34.0); MEAN CORPUSCULAR HGB CONC 32.2 % (32.0-36.0); PLATELET COUNT 285 TH/MM3 (150-450); RED BLOOD COUNT 3.15 MIL/MM3 (4.00-5.30); RED CELL DISTRIBUTION WIDTH 16.9 % (11.6-17.2); REVIEW FLAG FINAL; WHITE BLOOD COUNT 7.1 TH/MM3 (4.0-11.0)
[2017-06-14] MEDS: LACTOBACILLUS ACIDOPHILUS TAB PO SCH ×3 (08:38→17:17)
[2017-06-14] MEDS: SODIUM CHLORIDE 0.9% FLUSH 10 ML FLUSH IV FLUSH SCH ×2 (08:38→21:02)
[2017-06-14 09:03] LABS: BICARBONATE 21.4 MEQ/L (21.0-32.0); POTASSIUM 3.4 MEQ/L (3.5-5.1)
--- NOTE | 2017-06-14 09:32 | HHI.FPPN ---
Subjective Remarks Pt seen and examined bedside. Pt is feeling much better and lower abdominal pain is now 6/10. She denies any fever/chills overnight. She is eating and drinking without N/V. She denies any further diarrhea over the last 24hours and has had no bowel movements at all. Pt is inquiring as to when she can be discharged. (Sarah Wayne MD R2) Objective Vitals Vital Signs Date Time Temp Pulse Resp B/P (MAP) Pulse Ox O2 Delivery O2 Flow Rate FiO2 06/14/17 07:59 96 06/14/17 04:00 97.8 73 18 149/95 (113) 98 06/14/17 00:00 98.4 82 20 130/88 (102) 97 06/13/17 22:00 Room Air 06/13/17 20:00 98.3 81 18 137/92 (107) 96 06/13/17 20:00 86 06/13/17 16:01 97.7 69 18 122/75 (91) 97 06/13/17 12:00 97.3 80 18 128/72 (90) 97 I/O 06/13/17 06/13/17 06/13/17 06/14/17 06/14/17 06/14/17 06:59 14:59 22:59 06:59 14:59 22:59 Intake Total 1720 ml 1111 ml 1240 ml Output Total 425 ml 200 ml Balance 1295 ml 1111 ml 1040 ml Intake Oral 720 ml 240 ml IV Total 1000 ml 1111 ml 1000 ml Output Urine Total 425 ml 200 ml # Bowel Movements 0 0 (Sarah Wayne MD R2) Result Diagram: 06/14/17 0711 06/14/17 0711 Objective Remarks GENERAL: Well-nourished, well-developed female lying in bed in no acute distress. SKIN: Warm and dry. No rash. Bilateral black eyes. HEENT: Normocephalic with left lateral scalp wound. Wound healing appropriately without signs of infection. EOMI. No rhinorrhea. MMM. No JVD or LAD appreciated. CARDIOVASCULAR: Regular rate and rhythm without obvious murmurs, gallops, or rubs. RESPIRATORY: Clear to auscultation bilaterally with no CRW. No increased work of breathing. GASTROINTESTINAL: ABD soft and tender to moderate palpation in all four quadrants with suprapubic tenderness. Positive bowel sounds. No masses appreciated. MUSCULOSKELETAL: No cyanosis or edema. Strength grossly WNL. No calf tenderness. Left hand with obvious swelling. BACK: Nontender without obvious deformity. No CVA tenderness. NEURO/PSYCH: Afocal. Awake, alert, and oriented x3. Normal speech and judgement. (Sarah Wayne MD R2) A/P Assessment and Plan Ms. Mercedes is a 21 y/o F with no significant past medical history presenting to the ER with diffuse abdominal pain; secondary to pyelonephritis + ESBL. Discharge Planning Pending infectious disease recommendation as she has an ESBL Escherichia coli urinary tract infection. (Sarah Wayne MD R2) Attending Attestation Patient seen and examined. Case reviewed and discussed with the resident team. Agree with plan of care as discussed with me and documented in the resident note. She is much better overall compared to admission. Will nail down exactly what abx she needs at D/C as she is doing so well she may be D/Woo this weekend. She is nearly completely better. (Jennifer Houston MD) Problem List: (1) Pyelonephritis ICD Codes: N12 - Tubulo-interstitial nephritis, not specified as acute or chronic Status: Acute Plan: Patient presenting with dysuria, incontinence, diffuse abdominal pain, and nausea/vomiting with UA concerning for UTI. -Abdominal/pelvis CT: Right renal cysts, simple in appearance. L5 spondylosis. -Pelvic ultrasound: Echogenic debris within the urinary bladder of uncertain etiology. Otherwise, uterus and ovaries are sonographically normal. -CBC: WBC 31.2 -CMP: Potassium 3.2 -UA: Specific gravity greater than 1.05, ketones 80, small occult blood, positive nitrite, small leukocyte esterase, 6 rbc, 21 WBC, few bacteria -Lipase: 49 -Beta hCG: Less than 1 -Lactic acid: 0.6 -Blood cultures 2: Negative to date -Urine culture: ESBL positive Escherichia coli (sensitive to Bactrim) -GC and chlamydia PCR: Chlamydia negative, gonorrhea positive (treated with Rocephin and azithromycin in ER) -Wet prep: Negative -Infectious disease consulted for ESBL positive UTI, appreciate recommendations Medications: -Zosyn, ceftriaxone, and 1 g of azithromycin given in ER -Cefoxitin x3 and doxycycline x2 given for PID coverage, discontinued as ER evaluation for PID was negative -Toradol and morphine given in ER -Bactrim DS twice a day as culture is sensitive -Pyridium 200 mg 3 times a day -Normal saline at 100 mL per hour -Ibuprofen when necessary for pain 1-5 -[place] 5-325 when necessary for pain 6-10 -Toradol when necessary for breakthrough pain (2) Leukocytosis ICD Codes: D72.829 - Elevated white blood cell count, unspecified Status: Acute Plan: Patient with extensive leukocytosis to 31.2 -CBC: WBC 31.2 with neutrophils of 92.9% on admission, currently downtrending to 13 -Blood smear: Negative for abnormal process -Please see plan as above -C. difficile: no further stool has been produced. presumptively negative (3) Nutrition, metabolism, and development symptoms ICD Codes: R63.8 - Other symptoms and signs concerning food and fluid intake Status: Acute Plan: -Fluids: Normal saline at 100 mL per hour -Diet: Regular as tolerated -Electrolytes: Hypokalemia has resolved with supplementation -Prophylaxis: DuoNeb's when necessary for shortness of breath, docusate when necessary for constipation, loperamide when necessary for diarrhea, clonidine when necessary for blood pressure greater than 180/100, Vistaril when necessary for insomnia, Tylenol when necessary for fever (4) No contraindication to deep vein thrombosis (DVT) prophylaxis ICD Codes: Z78.9 - Other specified health status Status: Acute Plan: -Heparin 5000 units every 8 hours -SCD/TEDs (Sarah Wayne MD R2) Problem Qualifiers (1) Leukocytosis: Qualified Codes: D72.825 - Bandemia Sarah Wayne MD R2 Jun 14, 2017 09:32 Jennifer Houston MD Jun 14, 2017 13:17
[2017-06-14] MEDS: ERTAPENEM INJ 1,000 MG in SODIUM CHLORIDE 0.9% INJ 100 ML IV SCH (14:52)
[2017-06-15] VITALS (8 sets, daily range): BP systolic 133–154; BP diastolic 78–94; PULSE 57–68; RESP 16–20; TEMP 97.8–98.5; O2SAT 96–99
[2017-06-15] MEDS: HEPARIN SODIUM - SQ 10,000 UNITS/ML VIAL SQ SCH ×3 (05:33→21:54)
--- NOTE | 2017-06-15 07:48 | HHI.DCPOC ---
Discharge Care Plan Diagnosis: (1) Pyelonephritis Goals to Promote Your Health * To prevent worsening of your condition and complications * To maintain your health at the optimal level Directions to Meet Your Goals Take your medications as prescribed Follow your dietary instruction Follow activity as directed Keep your appointments as scheduled Take your immunizations and boosters as scheduled If your symptoms worsen call your PCP, if no PCP go to Urgent Care Center or Emergency Room Smoking is Dangerous to Your Health. Avoid second hand smoke Call the 24-hour hour crisis hotline for domestic abuse at Liang Garcia MD R2 Jun 15, 2017 07:48
[2017-06-15 08:05] LABS: AUTOMATED NEUTROPHIL # 3.7 TH/MM3 (1.8-7.7); BASOPHIL # 0.1 TH/MM3 (0-0.2); BASOPHIL % 0.9 % (0.0-2.0); EOSINOPHIL # 0.3 TH/MM3 (0-0.4); EOSINOPHIL % 3.7 % (0.0-4.0); HEMATOCRIT 26.9 % (35.0-46.0); HEMO FLAGS DIFF FINAL; LYMPH % 38.5 % (9.0-44.0); LYMPHOCYTE # 2.9 TH/MM3 (1.0-4.8); MEAN CELL VOLUME 81.2 FL (80.0-100.0); MEAN CORPUSCULAR HEMOGLOBIN 26.3 PG (27.0-34.0); MEAN CORPUSCULAR HGB CONC 32.3 % (32.0-36.0); NEUT % 48.9 % (16.0-70.0); PLATELET COUNT 336 TH/MM3 (150-450); RED BLOOD COUNT 3.31 MIL/MM3 (4.00-5.30); RED CELL DISTRIBUTION WIDTH 17.1 % (11.6-17.2); WHITE BLOOD COUNT 7.5 TH/MM3 (4.0-11.0)
[2017-06-15] MEDS: LACTOBACILLUS ACIDOPHILUS TAB PO SCH ×3 (08:23→18:08)
[2017-06-15] MEDS: SODIUM CHLORIDE 0.9% FLUSH 10 ML FLUSH IV FLUSH SCH ×2 (08:24→20:57)
[2017-06-15] MEDS: SODIUM CHLOR 0.9% 1000 ML INJ 1,000 ML IV SCH ×2 (08:24→20:15)
[2017-06-15 08:34] LABS: BICARBONATE 23.6 MEQ/L (21.0-32.0); POTASSIUM 3.6 MEQ/L (3.5-5.1)
--- NOTE | 2017-06-15 08:44 | HHI.FPPN ---
Subjective Remarks Pt seen and examined bedside. Sleeping and in no acute distress. Pt says pain is 5/10 from 6/10 yesterday. The pain is now more localized in the LLQ and radiating to the back and up to the R shoulder. She denies any burning or pain with urination. Fully formed bowel movement last night. Denies fever/chills. Denies CP/SOB/dizziness. (Sarah Wayne MD R2) Objective Vitals Vital Signs Date Time Temp Pulse Resp B/P (MAP) Pulse Ox O2 Delivery O2 Flow Rate FiO2 06/15/17 04:00 97.8 65 16 133/78 (96) 98 06/15/17 01:02 Room Air 06/15/17 00:00 97.8 65 16 133/78 (96) 98 06/14/17 22:56 21 06/14/17 20:00 98.9 72 16 129/83 (98) 97 06/14/17 16:00 98.3 71 18 147/87 (107) 97 06/14/17 12:00 97.9 73 19 146/94 (111) 98 06/14/17 12:00 Room Air 06/14/17 09:00 55 I/O 06/14/17 06/14/17 06/14/17 06/15/17 06/15/17 06/15/17 07:00 15:00 23:00 07:00 15:00 23:00 Intake Total 1240 ml 3038 ml 700 ml Output Total 200 ml 2300 ml Balance 1040 ml 738 ml 700 ml Intake Oral 240 ml 2040 ml 700 ml IV Total 1000 ml 998 ml Output Urine Total 200 ml 2300 ml # Voids 7 # Bowel Movements 0 1 (Sarah Wayne MD R2) Result Diagram: 06/15/17 0632 06/15/17 0632 Objective Remarks GENERAL: Well-nourished, well-developed female lying in bed in no acute distress. SKIN: Warm and dry. No rash. Bilateral black eyes. HEENT: Normocephalic with left lateral scalp wound. Wound healing appropriately without signs of infection. EOMI. No rhinorrhea. MMM. No JVD or LAD appreciated. CARDIOVASCULAR: Regular rate and rhythm without obvious murmurs, gallops, or rubs. RESPIRATORY: Clear to auscultation bilaterally with no CRW. No increased work of breathing. GASTROINTESTINAL: ABD soft and tender to moderate palpation in the lower quadrants with suprapubic tenderness. Positive bowel sounds. No masses appreciated. MUSCULOSKELETAL: No cyanosis or edema. Strength grossly WNL. No calf tenderness. Left hand with obvious swelling. BACK: Nontender without obvious deformity. No CVA tenderness. NEURO/PSYCH: Afocal. Awake, alert, and oriented x3. Normal speech and judgement. (Sarah Wayne MD R2) A/P Assessment and Plan Ms. Mercedes is a 21 y/o F with no significant past medical history presenting to the ER with diffuse abdominal pain; secondary to pyelonephritis + ESBL. Discharge Planning Pending infectious disease recommendation as she has an ESBL Escherichia coli urinary tract infection; Ucx drawn today and needs to be negative x 2 days for d /c Saturday. (Sarah Wayne MD R2) Attending Attestation Patient seen and examined. Case reviewed and discussed with the resident team. Agree with plan of care as discussed with me and documented in the resident note. discussed no drugs with her. she has resources to help quit (Jennifer Houston MD) Problem List: (1) Pyelonephritis ICD Codes: N12 - Tubulo-interstitial nephritis, not specified as acute or chronic Status: Acute Plan: Patient presenting with dysuria, incontinence, diffuse abdominal pain, and nausea/vomiting with UA concerning for UTI; found to be E.Coli + ESBL, ID consulted Initial labs as following: -Abdominal/pelvis CT: Right renal cysts, simple in appearance. L5 spondylosis. -Pelvic ultrasound: Echogenic debris within the urinary bladder of uncertain etiology. Otherwise, uterus and ovaries are sonographically normal. -CBC: WBC 31.2 -CMP: Potassium 3.2 -UA: Specific gravity greater than 1.05, ketones 80, small occult blood, positive nitrite, small leukocyte esterase, 6 rbc, 21 WBC, few bacteria -Lipase: 49 -Beta hCG: Less than 1 -Lactic acid: 0.6 -Blood cultures 2: Negative to date -Urine culture: ESBL positive Escherichia coli (sensitive to Bactrim) -GC and chlamydia PCR: Chlamydia negative, gonorrhea positive (treated with Rocephin and azithromycin in ER) -Wet prep: Negative Labs today: CBC, BMP WNL - WBC 7 -Infectious disease consulted for ESBL positive UTI, appreciate recommendations Medications: -Zosyn, ceftriaxone, and 1 g of azithromycin given in ER -Cefoxitin x3 and doxycycline x2 given for PID coverage, discontinued as ER evaluation for PID was negative -Toradol and morphine given in ER -Ertapenem IV per ID -Pyridium 200 mg 3 times a day -Normal saline at 100 mL per hour -Ibuprofen when necessary for pain 1-5 -[place] 5-325 when necessary for pain 6-10 -Toradol when necessary for breakthrough pain (2) Leukocytosis ICD Codes: D72.829 - Elevated white blood cell count, unspecified Status: Acute Plan: Patient with extensive leukocytosis to 31.2 -CBC: WBC 31.2 with neutrophils of 92.9% on admission, currently downtrending to 7 -Blood smear: Negative for abnormal process -Please see plan as above (3) Nutrition, metabolism, and development symptoms ICD Codes: R63.8 - Other symptoms and signs concerning food and fluid intake Status: Acute Plan: -Fluids: Normal saline at 100 mL per hour -Diet: Regular as tolerated -Electrolytes: Hypokalemia has resolved with supplementation -Prophylaxis: DuoNeb's when necessary for shortness of breath, docusate when necessary for constipation, loperamide when necessary for diarrhea, clonidine when necessary for blood pressure greater than 180/100, Vistaril when necessary for insomnia, Tylenol when necessary for fever (4) No contraindication to deep vein thrombosis (DVT) prophylaxis ICD Codes: Z78.9 - Other specified health status Status: Acute Plan: -Heparin 5000 units every 8 hours -SCD/TEDs (Sarah Wayne MD R2) Problem Qualifiers (1) Leukocytosis: Qualified Codes: D72.825 - Bandemia Sarah Wayne MD R2 Jun 15, 2017 08:44 Jennifer Houston MD Jun 17, 2017 11:33
[2017-06-15 08:53] LABS: BLOOD, URINE NEG (NEG); COMMENT (UR) CULT NOT INDICATED; CULTURE IF INDICATED CULT NOT INDICATED; GLUCOSE,URINE NEG (NEG); KETONE, URINE NEG (NEG); MUCUS URINE FEW /lpf (OCC); NITRITE,URINE NEG (NEG); SQUAMOUS EPITHELIAL CELL URINE <1 /hpf (0-5); URINE COLOR LIGHT-YELLOW (YELLW/STRAW)
[2017-06-15] MEDS: ACETAMINOPHEN/HYDROcodone 325 MG/5 MG TAB PO PRN ×3 (10:00→22:43)
[2017-06-15] MEDS: FERROUS SULFATE 325 MG (65 MG ELEMENTAL IRON) TAB PO SCH ×3 (10:00→18:08)
[2017-06-15] MEDS: ASCORBIC ACID 500 MG TAB PO SCH (10:00)
[2017-06-15] MEDS: ERTAPENEM INJ 1,000 MG in SODIUM CHLORIDE 0.9% INJ 100 ML IV SCH (14:31)
[2017-06-16] VITALS (8 sets, daily range): BP systolic 127–151; BP diastolic 59–89; PULSE 51–89; RESP 18–20; TEMP 97.8–98.5; O2SAT 97–100
[2017-06-16] MEDS: SODIUM CHLOR 0.9% 1000 ML INJ 1,000 ML IV SCH ×3 (01:12→20:32)
[2017-06-16] MEDS: ACETAMINOPHEN/HYDROcodone 325 MG/5 MG TAB PO PRN ×3 (02:30→21:55)
[2017-06-16] MEDS: HEPARIN SODIUM - SQ 10,000 UNITS/ML VIAL SQ SCH ×3 (05:44→21:00)
[2017-06-16] MEDS: FERROUS SULFATE 325 MG (65 MG ELEMENTAL IRON) TAB PO SCH ×3 (07:51→16:07)
[2017-06-16] MEDS: SODIUM CHLORIDE 0.9% FLUSH 10 ML FLUSH IV FLUSH SCH ×2 (07:52→21:00)
[2017-06-16] MEDS: ASCORBIC ACID 500 MG TAB PO SCH (07:52)
[2017-06-16] MEDS: LACTOBACILLUS ACIDOPHILUS TAB PO SCH ×3 (07:52→16:07)
[2017-06-16 09:25] LABS: AUTOMATED NEUTROPHIL # 4.3 TH/MM3 (1.8-7.7); BASOPHIL # 0.1 TH/MM3 (0-0.2); BASOPHIL % 0.9 % (0.0-2.0); EOSINOPHIL # 0.4 TH/MM3 (0-0.4); EOSINOPHIL % 4.7 % (0.0-4.0); HEMATOCRIT 29.4 % (35.0-46.0); HEMO FLAGS DIFF FINAL; LYMPH % 35.7 % (9.0-44.0); MEAN CELL VOLUME 80.9 FL (80.0-100.0); MEAN CORPUSCULAR HEMOGLOBIN 26.3 PG (27.0-34.0); MEAN CORPUSCULAR HGB CONC 32.5 % (32.0-36.0); MONO % 7.2 % (0.0-8.0); NEUT % 51.5 % (16.0-70.0); PLATELET COUNT 398 TH/MM3 (150-450); RED BLOOD COUNT 3.63 MIL/MM3 (4.00-5.30); RED CELL DISTRIBUTION WIDTH 17.2 % (11.6-17.2); WHITE BLOOD COUNT 8.3 TH/MM3 (4.0-11.0)
[2017-06-16 10:20] LABS: BICARBONATE 25.5 MEQ/L (21.0-32.0); POTASSIUM 3.5 MEQ/L (3.5-5.1)
--- NOTE | 2017-06-16 11:36 | HHI.FPPN ---
Subjective Remarks Pt seen and examined bedside. In no acute distress. Pt states abdominal pain is now 4/10 (down from 5/10 yesterday). The abdominal pain is of the same characteristic as before; left-sided and radiating across to right and up back to right shoulder. She denies any fever/chills. Denies CP/SOB/dizziness. Denies pain with urination. + normal bowel movement. (Sarah Wayne MD R2) Objective Vitals Vital Signs Date Time Temp Pulse Resp B/P (MAP) Pulse Ox O2 Delivery O2 Flow Rate FiO2 06/16/17 09:00 62 06/16/17 08:28 Room Air 06/16/17 08:00 98.1 61 20 147/89 (108) 100 06/16/17 06:00 98.0 60 18 140/86 (104) 98 06/16/17 04:00 Room Air 06/16/17 00:00 97.8 89 20 140/64 (89) 97 06/16/17 00:00 Room Air 06/15/17 20:00 98.5 61 16 140/86 (104) 98 06/15/17 20:00 57 06/15/17 20:00 Room Air 06/15/17 16:00 98.4 64 20 134/92 (106) 99 06/15/17 15:37 64 06/15/17 12:00 Room Air 06/15/17 12:00 98.0 64 20 145/94 (111) 99 I/O 06/15/17 06/15/17 06/15/17 06/16/17 06/16/17 06/16/17 07:00 15:00 23:00 07:00 15:00 23:00 Intake Total 700 ml 480 ml 1000 ml 1000 ml Output Total 3500 ml Balance 700 ml -3020 ml 1000 ml 1000 ml Intake Oral 700 ml 480 ml IV Total 1000 ml 1000 ml Output Urine Total 3500 ml # Voids 7 # Bowel Movements 1 0 (Sarah Wayne MD R2) Result Diagram: 06/16/1781606/16/17816 Objective Remarks GENERAL: Well-nourished, well-developed female lying in bed in no acute distress. SKIN: Warm and dry. No rash. Bilateral black eyes. HEENT: Normocephalic with left lateral scalp wound. Wound healing appropriately without signs of infection. EOMI. No rhinorrhea. MMM. No JVD or LAD appreciated. CARDIOVASCULAR: Regular rate and rhythm without obvious murmurs, gallops, or rubs. RESPIRATORY: Clear to auscultation bilaterally with no CRW. No increased work of breathing. GASTROINTESTINAL: ABD soft and non-tender to palpation. Positive bowel sounds. No masses appreciated. MUSCULOSKELETAL: No cyanosis or edema. Strength grossly WNL. No calf tenderness. Left hand with obvious swelling. BACK: Nontender without obvious deformity. No CVA tenderness. NEURO/PSYCH: Afocal. Awake, alert, and oriented x3. Normal speech and judgement. (Sarah Wayne MD R2) A/P Assessment and Plan Ms. Mercedes is a 21 y/o F with no significant past medical history presenting to the ER with diffuse abdominal pain; secondary to pyelonephritis + ESBL. Discharge Planning Pending infectious disease recommendation as she has an ESBL Escherichia coli urinary tract infection; Ucx drawn today and needs to be negative x 2 days for d /c Saturday. (Sarah Wayne MD R2) Attending Attestation Patient seen and examined. Case reviewed and discussed with the resident team. Agree with plan of care as discussed with me and documented in the resident note. greatly improved overall (Jennifer Houston MD) Problem List: (1) Pyelonephritis ICD Codes: N12 - Tubulo-interstitial nephritis, not specified as acute or chronic Status: Acute Plan: Patient presenting with dysuria, incontinence, diffuse abdominal pain, and nausea/vomiting with UA concerning for UTI; found to be E.Coli + ESBL, ID consulted Initial labs as following: -Abdominal/pelvis CT: Right renal cysts, simple in appearance. L5 spondylosis. -Pelvic ultrasound: Echogenic debris within the urinary bladder of uncertain etiology. Otherwise, uterus and ovaries are sonographically normal. -CBC: WBC 31.2 -CMP: Potassium 3.2 -UA: Specific gravity greater than 1.05, ketones 80, small occult blood, positive nitrite, small leukocyte esterase, 6 rbc, 21 WBC, few bacteria -Lipase: 49 -Beta hCG: Less than 1 -Lactic acid: 0.6 -Blood cultures 2: Negative to date -Urine culture: ESBL positive Escherichia coli (sensitive to Bactrim) -GC and chlamydia PCR: Chlamydia negative, gonorrhea positive (treated with Rocephin and azithromycin in ER) -Wet prep: Negative F/U Labs today: CBC, BMP F/U labs Saturday: CBC, BMP Urine cx -Infectious disease consulted for ESBL positive UTI, appreciate recommendations Medications: -Zosyn, ceftriaxone, and 1 g of azithromycin given in ER -Cefoxitin x3 and doxycycline x2 given for PID coverage, discontinued as ER evaluation for PID was negative -Toradol and morphine given in ER -Ertapenem IV per ID -Pyridium 200 mg 3 times a day -Normal saline at 100 mL per hour -Ibuprofen when necessary for pain 1-5 -[place] 5-325 when necessary for pain 6-10 -Toradol when necessary for breakthrough pain (2) Leukocytosis ICD Codes: D72.829 - Elevated white blood cell count, unspecified Status: Acute Plan: Patient with extensive leukocytosis to 31.2 -CBC: WBC 31.2 with neutrophils of 92.9% on admission, currently downtrending to 7 -Blood smear: Negative for abnormal process -Please see plan as above (3) Nutrition, metabolism, and development symptoms ICD Codes: R63.8 - Other symptoms and signs concerning food and fluid intake Status: Acute Plan: -Fluids: Normal saline at 100 mL per hour -Diet: Regular as tolerated -Electrolytes: Hypokalemia has resolved with supplementation -Prophylaxis: DuoNeb's when necessary for shortness of breath, docusate when necessary for constipation, loperamide when necessary for diarrhea, clonidine when necessary for blood pressure greater than 180/100, Vistaril when necessary for insomnia, Tylenol when necessary for fever (4) No contraindication to deep vein thrombosis (DVT) prophylaxis ICD Codes: Z78.9 - Other specified health status Status: Acute Plan: -Heparin 5000 units every 8 hours -SCD/TEDs (Sarah Wayne MD R2) Problem Qualifiers (1) Leukocytosis: Qualified Codes: D72.825 - Bandemia Sarah Wayne MD R2 Jun 16, 2017 11:35 Jennifer Houston MD Jun 17, 2017 11:34
[2017-06-16] MEDS: ERTAPENEM INJ 1,000 MG in SODIUM CHLORIDE 0.9% INJ 100 ML IV SCH (16:08)
[2017-06-17] VITALS: BP 127/59; PULSE 57; RESP 16; TEMP 97.9; O2SAT 98
[2017-06-17 04:00] VITALS: BP 136/74; PULSE 60; RESP 18; TEMP 97.5; O2SAT 97
[2017-06-17] MEDS: HEPARIN SODIUM - SQ 10,000 UNITS/ML VIAL SQ SCH (05:21)
[2017-06-17] MEDS: SODIUM CHLOR 0.9% 1000 ML INJ 1,000 ML IV SCH (05:22)
[2017-06-17 08:00] VITALS: BP 140/83; PULSE 58; RESP 18; TEMP 98.1; O2SAT 98
[2017-06-17] MEDS: ASCORBIC ACID 500 MG TAB PO SCH (08:47)
[2017-06-17] MEDS: FERROUS SULFATE 325 MG (65 MG ELEMENTAL IRON) TAB PO SCH ×2 (08:47→12:26)
[2017-06-17] MEDS: LACTOBACILLUS ACIDOPHILUS TAB PO SCH ×2 (08:47→12:26)
[2017-06-17] MEDS: SODIUM CHLORIDE 0.9% FLUSH 10 ML FLUSH IV FLUSH SCH (08:47)
--- NOTE | 2017-06-17 10:29 | HHI.FPPN ---
Subjective Remarks Patient seen and examined medical team this morning. No acute events overnight per nursing staff. Vital signs remained stable. Patient currently requests to be discharged from the hospital and is currently without complaints. Upon further discussion, medical team did inform her that she had Emily albicans in her urine and then she reported some mild physiological discharge with vaginal burning while showering over the last 24 hours. She states that currently she is without complaint and that it is "not bothering her at all." She also went on report mild abdominal discomfort when having a BM. She states that her stools have become more solid during her hospitalization. Otherwise she denies any recent fevers, chills, shortness of breath, chest pain, NVD, or calf tenderness. (Liang Garcia MD R2) Objective Vitals Vital Signs Date Time Temp Pulse Resp B/P (MAP) Pulse Ox O2 Delivery O2 Flow Rate FiO2 06/17/17 08:00 98.1 58 18 140/83 (102) 98 06/17/17 04:00 Room Air 06/17/17 04:00 97.5 60 18 136/74 (94) 97 06/17/17 00:00 Room Air 06/17/17 00:00 97.9 57 16 127/59 (81) 98 06/16/17 20:01 51 06/16/17 20:00 98.5 62 18 131/80 (97) 98 06/16/17 20:00 Room Air 06/16/17 16:00 Room Air 06/16/17 16:00 98.3 60 20 151/80 (103) 99 06/16/17 12:00 97.8 57 20 129/80 (96) 97 06/16/17 12:00 Room Air I/O 06/16/17 06/16/17 06/16/17 06/17/17 06/17/17 06/17/17 07:00 15:00 23:00 07:00 15:00 23:00 Intake Total 1000 ml 1000 ml 2007 ml 1364 ml Output Total 1700 ml 1800 ml Balance 1000 ml 1000 ml 307 ml -436 ml Intake Oral 960 ml 480 ml IV Total 1000 ml 1000 ml 1047 ml 884 ml Output Urine Total 1700 ml 1800 ml # Voids 3 # Bowel Movements 1 (Liang Garcia MD R2) Result Diagram: 06/16/1781606/16/17816 Objective Remarks GENERAL: Well-nourished, well-developed female lying in bed in no acute distress. SKIN: Warm and dry. No rash. Bilateral black eyes, improved from admission. HEENT: Normocephalic with left lateral scalp wound. Wound healing appropriately without signs of infection. EOMI. No rhinorrhea. MMM. No JVD or LAD appreciated. CARDIOVASCULAR: Regular rate and rhythm without obvious murmurs, gallops, or rubs. RESPIRATORY: Clear to auscultation bilaterally with no CRW. No increased work of breathing. GASTROINTESTINAL: ABD soft and non-tender to palpation. Positive bowel sounds. No masses appreciated. MUSCULOSKELETAL: No cyanosis or edema. Strength grossly WNL. No calf tenderness. Left hand swelling improved from admission. BACK: Nontender without obvious deformity. No CVA tenderness. NEURO/PSYCH: Afocal. Awake, alert, and oriented x3. Normal speech and judgement. (Liang Garcia MD R2) A/P Assessment and Plan Ms. Mercedes is a 21 y/o F with no significant past medical history presenting to the ER with diffuse abdominal pain; secondary to pyelonephritis + ESBL. Discharge Planning Pending infectious disease recommendation as she has an ESBL Escherichia coli urinary tract infection. Plan for patient to be discharged today in follow-up with PCP within one week. Case management consulted to rule out patient with materials for [facility] for rehabilitation from [facility] synthetic drug. Physical therapy recommends no PT at home, but currently does recommend wheeled walker. Physical therapy to reevaluate patient as she has been ambulating without assistance per report. (Liang Garcia MD R2) Attending Attestation Patient seen and examined. Case reviewed and discussed with the resident team. Agree with plan of care as discussed with me and documented in the resident note. her urine is clear. appreciate advice from ID. (Jennifer Houston MD) Problem List: (1) Pyelonephritis ICD Codes: N12 - Tubulo-interstitial nephritis, not specified as acute or chronic Status: Acute Plan: Patient presenting with dysuria, incontinence, diffuse abdominal pain, and nausea/vomiting with UA concerning for UTI; found to be E.Coli + ESBL, ID consulted Initial labs as following: -Abdominal/pelvis CT: Right renal cysts, simple in appearance. L5 spondylosis. -Pelvic ultrasound: Echogenic debris within the urinary bladder of uncertain etiology. Otherwise, uterus and ovaries are sonographically normal. -CBC: WBC 31.2 -CMP: Potassium 3.2 -UA: Specific gravity greater than 1.05, ketones 80, small occult blood, positive nitrite, small leukocyte esterase, 6 rbc, 21 WBC, few bacteria -Lipase: 49 -Beta hCG: Less than 1 -Lactic acid: 0.6 -Blood cultures 2: Negative to date -Urine culture: ESBL positive Escherichia coli (sensitive to Bactrim) -GC and chlamydia PCR: Chlamydia negative, gonorrhea positive (treated with Rocephin and azithromycin in ER) -Wet prep: Negative -Infectious disease consulted for ESBL positive UTI, appreciate recommendations Medications: -Zosyn, ceftriaxone, and 1 g of azithromycin given in ER -Cefoxitin x3 and doxycycline x2 given for PID coverage, discontinued as ER evaluation for PID was negative -Toradol and morphine given in ER -Ertapenem IV per ID -Pyridium 200 mg 3 times a day -Normal saline at 100 mL per hour -Ibuprofen when necessary for pain 1-5 -[place] 5-325 when necessary for pain 6-10 -Toradol when necessary for breakthrough pain -Discussed patient with infectious disease, currently recommending discharge with 5 days of Macrobid twice a day (2) Leukocytosis ICD Codes: D72.829 - Elevated white blood cell count, unspecified Status: Acute Plan: Patient with extensive leukocytosis to 31.2 -CBC on admission: WBC 31.2 with neutrophils of 92.9% on admission -Blood smear: Negative for abnormal process -Please see plan as above (3) Candiduria ICD Codes: B37.49 - Other urogenital candidiasis Status: Acute Plan: Patient currently with candiduria and mild symptoms (itching when showering and mild physiologic discharge per patient). -Urine culture 06/15: Emily albicans less than 10,000 CFU per milliliter -Previous pelvic exam wet prep, yeast, and trichomonas negative Medications: -Patient positive for gonorrhea and treated with ceftriaxone and ER -Patient negative for chlamydia, but treated with 1 g azithromycin in ER -Fluconazole 150 mg given once prior to discharge (4) Nutrition, metabolism, and development symptoms ICD Codes: R63.8 - Other symptoms and signs concerning food and fluid intake Status: Acute Plan: -Fluids: Normal saline at 100 mL per hour, discontinued at discharge -Diet: Regular as tolerated -Electrolytes: Within normal limits, continue to monitor -Prophylaxis: DuoNeb's when necessary for shortness of breath, docusate when necessary for constipation, loperamide when necessary for diarrhea, clonidine when necessary for blood pressure greater than 180/100, Vistaril when necessary for insomnia, Tylenol when necessary for fever (5) No contraindication to deep vein thrombosis (DVT) prophylaxis ICD Codes: Z78.9 - Other specified health status Status: Acute Plan: -Heparin 5000 units every 8 hours, to be discontinued at discharge -SCD/TEDs (Liang Garcia MD R2) Problem Qualifiers (1) Leukocytosis: Qualified Codes: D72.825 - Bandemia Liang Garcia MD R2 Jun 17, 2017 10:29 Jennifer Houston MD Jun 17, 2017 11:34
[2017-06-17] MEDS ORDERED: MACR100C2 PO (10:49)
[2017-06-17] MEDS ORDERED: FLUCONAZOLE 100 MG TAB PO ONE (11:15)
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
[2017-06-17 12:00] VITALS: BP 136/82; PULSE 60; RESP 18; TEMP 98.3; O2SAT 96
[2017-06-17] MEDS ORDERED: PERI8.6T PO ×2 (12:00→12:24)
[2017-06-17] MEDS ORDERED: AZIT500T2 PO (12:16)
== END 2017-06-17 14:05 | disposition home or self-care (01) | DRG 872 ==
LOC: NEPC 07:11 → NEDA 12:39 → N04A 17:03
PROVIDERS: ADMIT Family Medicine; ATTEND Family Medicine
DX: A41.9 Sepsis, unspecified organism (principal); E87.1 Hypo-osmolality and hyponatremia; N28.1 Cyst of kidney, acquired; N10 Acute pyelonephritis; F17.210 Nicotine dependence, cigarettes, uncomplicated; B37.49 Other urogenital candidiasis; N39.0 Urinary tract infection, site not specified; E87.6 Hypokalemia; B96.20 Unspecified Escherichia coli [E. coli] as the cause of diseases classified elsewhere
CPT/HCPCS: 74177; 76856; 76937; 80048; 80053; 81001; 83605; 83690; 83735; 84703; 85007; 85025; 85027; 85060; 86703; 87040; 87077; 87086; 87186; 87210; 87491; 87591; 96361; 96365; 96375; J0694; J0696; J1335; J1644; J1885; J2270; J2405; J2543; J7030; Q9967

== ENCOUNTER 2017-10-02 21:02 | Emergency (ER) | payer MEDICAID ==
[~2017-10-02 21:02] MED LIST changes: +MACR100C2 PO; -NAPR500T PO; +PERI8.6T PO; -TRAM50TA PO
[2017-10-02 21:05] VITALS: BP 124/62; PULSE 116; RESP 20; TEMP 98.7; O2SAT 99
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
[2017-10-02 22:10] LABS: BLOOD, URINE NEG (NEG); COMMENT (UR) CULTURE INDICATED; CULTURE IF INDICATED CULTURE INDICATED; GLUCOSE,URINE NEG (NEG); HYALINE CAST, URINE 17 /lpf (RARE); KETONE, URINE 80 mg/dL (NEG); MUCUS URINE MANY /lpf (OCC); NITRITE,URINE NEG (NEG); SQUAMOUS EPITHELIAL CELL URINE 5 /hpf (0-5); URINE COLOR YELLOW (YELLW/STRAW)
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
[2017-10-02] MEDS ORDERED: MACR100C2 PO (23:22)
[2017-10-02] MEDS ORDERED: PREN1PAK9 PO (23:22)
[2017-10-02] MEDS ORDERED: AZITHROMYCIN 250 MG TAB PO ONE (23:30)
[2017-10-02] MEDS ORDERED: cefTRIAXone 250 MG VIAL IM ONE (23:30)
[2017-10-02] MEDS ORDERED: metroNIDAZOLE 500 MG TAB PO ONE (23:30)
[2017-10-02] MEDS ORDERED: ONDANSETRON ODT 4 MG TAB PO ONE (23:30)
[2017-10-02] MEDS ORDERED: LIDOCAINE HCL 1% 50 ML VIAL XX ONE (23:30)
[2017-10-03 00:30] LABS: CHLAMYDIA PCR NOT DETECTED (NOT DETECT); NEISSERIA PCR NOT DETECTED (NOT DETECT)
== END 2017-10-03 00:05 | disposition home or self-care (01) ==
LOC: NEPE 21:02
DX: O98.311 Other infections with a predominantly sexual mode of transmission complicating pregnancy, first trimester (principal); A59.9 Trichomoniasis, unspecified; B96.89 Other specified bacterial agents as the cause of diseases classified elsewhere; O99.331 Smoking (tobacco) complicating pregnancy, first trimester; F17.200 Nicotine dependence, unspecified, uncomplicated; Z3A.08 8 weeks gestation of pregnancy
CPT/HCPCS: 70450; 81001; 84703; 87086; 87210; 87491; 87591; 96372; 99285; J0696

== ENCOUNTER 2017-10-04 23:12 | Emergency (ER) | payer MEDICAID, OTHER ==
[~2017-10-04] VITALS: Ht 160 cm; Wt 75.0 kg
[~2017-10-04 23:12] MED LIST changes: -PERI8.6T PO; +PREN1PAK9 PO
[2017-10-04 23:13] VITALS: BP 130/92; PULSE 77; RESP 18; TEMP 98.4; O2SAT 98
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
[2017-10-04] MEDS ORDERED: ACETAMINOPHEN 500 MG CPLT PO ONE (23:45)
[2017-10-04] MEDS ORDERED: SODIUM CHLORID 0.9% 500 ML INJ 500 ML IV ONE (23:45)
[2017-10-05 00:50] LABS: AUTOMATED NEUTROPHIL # 5.2 TH/MM3 (1.8-7.7); BASOPHIL % 0.4 % (0.0-2.0); EOSINOPHIL # 0.1 TH/MM3 (0-0.4); EOSINOPHIL % 1.4 % (0.0-4.0); HEMATOCRIT 33.8 % (35.0-46.0); LYMPH % 38.6 % (9.0-44.0); MEAN CELL VOLUME 80.2 FL (80.0-100.0); MEAN CORPUSCULAR HEMOGLOBIN 26.1 PG (27.0-34.0); MEAN CORPUSCULAR HGB CONC 32.6 % (32.0-36.0); MEAN PLATELET VOLUME 7.7 FL (7.0-11.0); MONOCYTE # 0.9 TH/MM3 (0-0.9); NEUT % 50.6 % (16.0-70.0); PLATELET COUNT 369 TH/MM3 (150-450); RED BLOOD COUNT 4.22 MIL/MM3 (4.00-5.30); RED CELL DISTRIBUTION WIDTH 17.3 % (11.6-17.2); WHITE BLOOD COUNT 10.3 TH/MM3 (4.0-11.0)
[2017-10-05 01:00] LABS: BACTERIA, URINE RARE /hpf; BILIRUBIN, URINE NEG (NEG); BLOOD, URINE NEG (NEG); GLUCOSE,URINE NEG (NEG); KETONE, URINE 40 mg/dL (NEG); MUCUS URINE FEW /lpf (OCC); NITRITE,URINE NEG (NEG); SQUAMOUS EPITHELIAL CELL URINE 3 /hpf (0-5); URINE COLOR YELLOW (YELLW/STRAW); URINE LEUKOCYTE ESTERASE TRACE (NEG)
[2017-10-05 01:08] LABS: BICARBONATE 23.9 MEQ/L (21.0-32.0); CALCIUM 8.9 MG/DL (8.5-10.1); CREATININE 0.61 MG/DL (0.50-1.00)
[2017-10-05] MEDS ORDERED: MACR100C2 PO (01:38)
[2017-10-05 01:40] VITALS: BP 123/73; PULSE 74; RESP 16; TEMP 97.7
== END 2017-10-05 02:20 | disposition home or self-care (01) ==
LOC: NEPC 23:12
DX: O26.891 Other specified pregnancy related conditions, first trimester (principal); R30.0 Dysuria; R10.30 Lower abdominal pain, unspecified; O99.331 Smoking (tobacco) complicating pregnancy, first trimester; Z3A.08 8 weeks gestation of pregnancy
CPT/HCPCS: 80048; 81001; 84702; 85025; 99284; J7040

== ENCOUNTER 2017-10-26 09:55 | Emergency (ER) | payer MEDICAID ==
[2017-10-26 09:57] VITALS: BP 149/72; PULSE 112; RESP 14; TEMP 97.8; O2SAT 98
[2017-10-26] MEDS ORDERED: ACETAMINOPHEN 325 MG TAB PO ONE (10:15)
[2017-10-26] MEDS ORDERED: ONDANSETRON ODT 4 MG TAB PO ONE (10:15)
--- NOTE | 2017-10-26 10:19 | PD ---
HPI Chief Complaint: Cold / Flu Symptoms Time Seen by Provider: 10:07 Travel History International Travel<30 days: No Contact w/Intl Traveler<30days: No Traveled to known affect area: No History of Present Illness HPI 22-year-old female, that states she is approximately 11-12 weeks , presents to the emergency Department with complaint of nausea, vomiting, diarrhea, body aches since this morning. I saw her boyfriend yesterday and he was diagnosed with influenza A. She denies fever, sore throat, ear pain, cough. Denies abdominal cramping, abdominal pain. Denies vaginal bleeding, leaking, discharge. Has not taken any medications or tried any treatments to alleviate her symptoms. No known relieving or aggravating factors. Symptoms are moderate in severity. Has not seen an rock mason apprentice. No primary care provider. No known allergies. Denies significant past medical history. Has no other medical complaints. No other modifying factors or associated signs and symptoms. PFSH Past Medical History Anxiety: No Depression: No Cancer: No Cardiovascular Problems: No Diminished Hearing: No Endocrine: No Genitourinary: No Immune Disorder: No Musculoskeletal: No Neurologic: No Psychiatric: No Reproductive: No Respiratory: No Immunizations Current: Yes ?: Not : 2 Para: 1 Miscarriage: 1 Past Surgical History Section: Yes (x 1) Ear Surgery: Yes ( A CHILD) Gynecologic Surgery: Yes Tympanostomy Tube: Yes Other Surgery: No Social History Alcohol Use: No Tobacco Use: Yes (2 PPD) Substance Use: No (DENIES) Allergies-Medications (Allergen,Severity, Reaction): Coded Allergies: No Known Allergies (Unverified Adverse Reaction, Unknown, 10/04/17) Reported Meds & Prescriptions Reported Meds & Active Scripts Active Zofran Odt (Ondansetron Odt) 4 Mg Tab 4 Mg SL Q8HR PRN + Complete Multi 18-0.8 & 290 mg ( Mv & Min W/Fe Prot Villagran) 18 Mg Iron-800 Mcg-290 Mg-225 Mg Tex 1 Tab PO DAILY 30 Days Review of Systems Except as stated in HPI: all other systems reviewed are Neg Physical Exam Narrative GENERAL: Well-nourished, well-developed black female patient, in no acute distress; afebrile, nontoxic-appearing SKIN: Warm and dry. No rash. HEAD: Atraumatic. Normocephalic. EYES: Pupils equal and round. No scleral icterus. No injection or drainage. ENT: Mucosa pink and moist. No erythema or exudates. No uvular edema. No uvular , palatal, or tonsillar deviation. Airway patent. EARS: Bilateral pinnae and external canals appear within normal limits. Bilateral tympanic membranes without erythema, dullness or perforation. NECK: Trachea midline. No lymphadenopathy. CARDIOVASCULAR: Regular rate and rhythm. No murmur appreciated. RESPIRATORY: No accessory muscle use. Clear to auscultation. Breath sounds equal bilaterally. No retractions or tachypnea. GASTROINTESTINAL: Abdomen soft, non-tender, nondistended. Hepatic and splenic margins not palpable. Bowel sounds are active 4 quadrants. MUSCULOSKELETAL: No obvious deformities. No clubbing. No cyanosis. No edema. NEUROLOGICAL: Awake and alert. Oriented 3. No obvious cranial nerve deficits. Motor grossly within normal limits. Normal speech. Moves all extremities. 5/5 strength to all extremities. PSYCHIATRIC: Appropriate mood and affect; insight and judgment normal. Data Data Last Documented VS Vital Signs Date Time Temp Pulse Resp B/P (MAP) Pulse Ox O2 Delivery O2 Flow Rate FiO2 10/26/17 11:41 10/26/17 10:09 16 Room Air 10/26/17 09:57 97.8 112 98 Orders Orders Influenzae A/B Antigen (10/26/17 10:08) Heart Tones (10/26/17 10:14) Ondansetron Odt (Zofran Odt) (10/26/17 10:15) Acetaminophen (Tylenol) (10/26/17 10:15) Ed Discharge Order (10/26/17 11:29) [facility] Medical Decision Making Medical Screen Exam Complete: Yes Emergency Medical Condition: Yes Medical Record Reviewed: Yes Differential Diagnosis Influenza, gastroenteritis, vomiting secondary to Narrative Course 22-year-old female with nausea, vomiting, body aches. Her boyfriend was diagnosed with influenza A yesterday. She is approximately 11-12 weeks per the patient. She denies abdominal cramping, pain, vaginal discharge, vaginal leakage, vaginal bleeding. I discussed the patient with Dr. Gleason my attending physician he agrees with my plan of care. Influenza, Zofran, Tylenol, heart tones ordered. Patient given Gatorade for by mouth challenge. heart tones 148 bpm. 1129: Influenza negative. Patient has tolerated Gatorade by mouth without continued nausea or vomiting. States she feels better. Zofran prescribed for home. Instructed patient to follow up with rock mason apprentice. Instructed patient to follow up with primary care provider. Patient verbalizes understanding and agreement with treatment plan. Patient is medically cleared and stable for discharge. Discussed reasons to return to the emergency department. Patient agrees with treatment plan. The patients vital signs are stable and the patient is stable for outpatient follow-up and treatment. Patient discharged home, stable and in no acute distress. Diagnosis Primary Impression: Viral illness Referrals: Welder Machine Operator Primary Care Physician Patient Instructions: General Instructions, Viral Syndrome (ED) Additional Instructions: Zofran as prescribed and as needed for nausea/vomiting Tylenol as directed and as needed to reduce fever [id number] cold/flu medications as directed and as needed for symptom management Get plenty of sleep/rest Drink plenty of fluids to prevent dehydration; such as Gatorade, Powerade, Pedialyte [place] diet to encourage nutrition such as crackers, fruit, applesauce, toast, soup etc. Use an air humidifier/turn off ceiling fans Follow-up with your primary care provider within 1 day Follow-up with rock mason apprentice Return immediately to the emergency department with worsening of symptoms Med/Other Pt SpecificInfo: Prescription(s) given Scripts Ondansetron Odt (Zofran Odt) 4 Mg Tab 4 MG SL Q8HR Y for Nausea/Vomiting, #6 TAB 0 Refills Prov: Beckie Walsh 10/26/17 Disposition: 01 DISCHARGE HOME Condition: Stable Beckie Walsh Oct 26, 2017 10:19
[2017-10-26] MEDS ORDERED: ZOFR4TAB3 SL (11:29)
== END 2017-10-26 11:42 | disposition home or self-care (01) ==
LOC: NEPD 09:55
DX: O21.9 Vomiting of pregnancy, unspecified (principal); B34.9 Viral infection, unspecified; O99.331 Smoking (tobacco) complicating pregnancy, first trimester; Z3A.11 11 weeks gestation of pregnancy; Z79.899 Other long term (current) drug therapy
CPT/HCPCS: 87804; 99283

== ENCOUNTER 2018-03-13 16:17 | Emergency (ER) | payer MEDICAID ==
[~2018-03-13 16:17] MED LIST changes: -MACR100C2 PO; +ZOFR4TAB3 SL
--- NOTE | 2018-03-13 19:07 | PD ---
HPI Chief Complaint vag d/c Date Seen: March 13, 2018 Time Seen: 18:56 Travel History International Travel<30 Days: No Contact w/Intl Traveler<30Days: No Known Affected Area: No History of Present Illness HPI pt. is a 22 y/o @ 31 6/7 week present w/ c/o vag d/c. pt. states been in half-way for the last few months. pt. states over the last 2 days has had increasing vag d/c. has slight odor and brownish to white. no vb now, but about a week ago noticed smeared blood on paper when wipe. +FM, no lof, no ctxs. no dysuria. Weeks Gestation: 31 Para: 1 : 3 History Obstetric History Obstetric History , cd x 1, sab x 1 Past Surgical History Narrative Surgical h/o cd x 1 Family History Family History: Negative Social History Alcohol Use: No Tobacco Use: No Substance Abuse: No Allergies-Medications (Allergen,Severity, Reaction): Coded Allergies: No Known Allergies (Unverified Adverse Reaction, Unknown, 10/04/17) Home Meds Active Scripts Ondansetron Odt (Zofran Odt) 4 Mg Tab, 4 MG SL Q8HR Y for Nausea/Vomiting, #6 TAB 0 Refills Prov:Beckie Walsh COMMUNITY RESOURCE OFFICER 10/26/17 Mv & Min W/Fe Prot Villagran ( + Complete Multi 18-0.8 & 290 mg) 18 Mg Iron-800 Mcg-290 Mg-225 Mg Tex, 1 TAB PO DAILY for 30 Days, 9 Refills Prov:Lucas Neumann MD 10/02/17 Review of Systems Except as stated in HPI: all other systems reviewed are Neg Physical Exam Narrative GENERAL: Well-nourished, well-developed patient. SKIN: Warm and dry. HEAD: Normocephalic and atraumatic. EYES: No scleral icterus. No injection or drainage. ENT: No nasal drainage noted. Mucous membranes pink. Airway patent. NECK: Supple, trachea midline. No JVD. CARDIOVASCULAR: Regular rate and rhythm without murmurs, gallops, or rubs. RESPIRATORY: Breath sounds equal bilaterally. No accessory muscle use. ABDOMEN/GI: Abdomen soft, non-tender, bowel sounds present, no rebound, no guarding Gravid GENITOURINARY: External Genitalia: intact and normal in appearance SSE: normal vag ruggae, no abnl d/c. Dilatation: closed Uterine Contractions: none FHT's: Category: 1 Variability: mod EXTREMITIES: No cyanosis or edema. BACK: Nontender without obvious deformity. No CVA tenderness. NEUROLOGICAL: Awake and alert. Motor and sensory grossly within normal limits. Five out of 5 muscle strength in all muscle groups. Normal speech. Data Data Vital Signs Reviewed: Yes Orders Orders Developmental Services Worker Clear For Discharge (03/13/18 ) [facility] Medical Record Reviewed: Yes Plan pt. to be d/c to home. vag d/c d/w pt. all ? answered. pt. to make an appointment and f/u at the clinic. pt. given precautions for return. Diagnosis Diagnosis: Primary Impression: Vaginal discharge during Additional Impression: 31 weeks gestation of Disposition: DISCHARGE HOME Prasanna Pimentel Jr., MD March 13, 2018 19:07
== END 2018-03-13 19:19 | disposition home or self-care (01) ==
LOC: HOBED 16:17
DX: O26.893 Other specified pregnancy related conditions, third trimester (principal); N89.8 Other specified noninflammatory disorders of vagina; Z3A.31 31 weeks gestation of pregnancy
CPT/HCPCS: 99284

== ENCOUNTER 2018-04-27 08:36 | Inpatient (IN) ==
--- NOTE | 2018-04-27 09:28 | ED ---
History of Present Illness Primary Care Physician: No Primary Care Physician Chief Complaint: Vaginal pain History of Present Illness: 22-year-old comes in at 38 weeks and 2 days complaining of sharp shooting vaginal pain along with vaginal discharge that is somewhat malodorous in nature. She states that this been going on for about 2 days but it worsened today. She had limited care with a few visits in her first trimester then went to detention and when she came out of detention was unable to acquire continued care. She has had a previous section performed here at [facility] and is undecided on her mode of delivery whether it be a vaginal after versus a repeat . Patient is not sure of her previous ultrasound date but it was prior to 22 weeks as she went to detention at that time. Patient denies vaginal bleeding, contractions, rupture membranes. Weeks Gestation:: 38 Para: 1 : 3 Total # of Miscarriage(s): 1 - Inpatient Certification If this patient has been admitted as an Inpatient: I certify that the inpatient services were ordered in accordance with Medicare regulations governing the order. This includes certification that hospital inpatient services are reasonable and necessary and in the case of services not specified as inpatient-only under 42 CFR 419.22(n), that they are appropriately provided as inpatient services in accordance to with the 2-midnight benchmark under 43 CFR 412.3(e) <Naida Lawson - Last Filed: 04/27/18 09:50> Primary Care Physician: No Primary Care Physician - Inpatient Certification If this patient has been admitted as an Inpatient: I certify that the inpatient services were ordered in accordance with Medicare regulations governing the order. This includes certification that hospital inpatient services are reasonable and necessary and in the case of services not specified as inpatient-only under 42 CFR 419.22(n), that they are appropriately provided as inpatient services in accordance to with the 2-midnight benchmark under 43 CFR 412.3(e) <Hayden Joyner - Last Filed: 04/27/18 13:01> Review of Systems All other systems reviewed negative except as stated in HPI <Naida Lawson - Last Filed: 04/27/18 09:50> PMFSH - Medical / Surgical Hx Neg / Unobtainable Medical Problems Denied: Yes Surgical History: No Previous Surgery - Tobacco History Smoking Status: Never smoker - Alcohol History How Often Do You Have a Drink Containing Alcohol: Monthly or less - Substance Use History Substance History: No History of Abuse - Travel History History of Recent Travel: No Recent Travel in the [place] Within the Last 8 Weeks: No Recent Travel Out of the Country Within the Last 8 Weeks: No <Naida Lawson - Last Filed: 04/27/18 09:50> - Medical / Surgical Hx Neg / Unobtainable Surgical History: No Previous Surgery (This was checked in error and according to medical informatics cannot be removed) - Surgical History Surgical History: Surgical History (Last Updated 04/27/18 @ 11:21 by Hayden Joyner MD) History of delivery - Tobacco History Tobacco Use In Past 30 Days: Yes Smoking Status: Current every day smoker (One half pack per day) Tobacco Type: Cigarettes <Hayden Joyner - Last Filed: 04/27/18 13:01> Medications and Allergies Active Medications: Active Medications Sodium Chloride (Ns Flush) 2 ml IV.FLUSH PRN PRN PRN Reason: FLUSH AFTER USING IV ACCESS Sodium Chloride (Ns Flush) 2 ml IV.FLUSH BID [facility] <RennyNaida - Last Filed: 04/27/18 09:50> Active Medications: Active Medications Sodium Chloride (Ns Flush) 2 ml IV.FLUSH PRN PRN PRN Reason: FLUSH AFTER USING IV ACCESS Sodium Chloride (Ns Flush) 2 ml IV.FLUSH BID [facility] <Hayden Joyner - Last Filed: 04/27/18 13:01> Allergies Allergy/AdvReac Type Severity Reaction Status Date / Time No Known Allergies Unknown Uncoded 10/04/17 23:14 Home Medications Medication Instructions Recorded Confirmed Type No Known Home Medications 04/27/18 04/27/18 History Exam Vital signs: Vital Signs 04/27/18 08:53 Temperature 98.1 F Respiratory Rate 20 - Constitutional no acute distress - Routine HEENT Exam Head: Present: normocephalic, atraumatic - Routine Neck Exam Present: supple, full ROM - Routine Respiratory Exam Present: CTA bilaterally - Routine Cardiovascular Exam Present: RRR - Routine Abdominal Exam Present: soft, normoactive bowel sounds - Routine Exam External: Present: normal urethra appearance, vulvar tenderness, discharge ( Obvious bacterial vaginosis is noted) Comments: Cervix is closed long high, vertex - Additional findings Additional findings: heart rate tracing notes baseline 140, accelerations are present with no decelerations evident and moderate variability making this a category 1 heart rate tracing External tocometer notes no contractions Patient is at 38 weeks 2 days with the prior section limited care and limited dating criteria Elevated blood pressures are noted and blood work was sent protein creatinine ratio was ordered group B strep and labs were collected Ultrasound with BPP is ordered <Naida Lawson - Last Filed: 04/27/18 09:50> Vital signs: Vital Signs 04/27/18 08:53 04/27/18 09:28 04/27/18 10:06 Temperature 98.1 F Pulse Rate 92 H 79 Respiratory Rate 20 Blood Pressure 147/94 H 155/101 H Intake & Output 04/26/18 04/27/18 04/27/18 18:59 06:59 18:59 Weight 250 kg <Hayden Joyner - Last Filed: 04/27/18 13:01> Results - Labs CBC & Chem 7: 04/27/18 09:28 04/27/18 09:28 Labs: Laboratory Results - last 24 hr 04/27/18 04/27/18 04/27/18 09:20 09:28 09:28 WBC 10.8 RBC 3.87 L Hgb 10.5 L Hct 31.6 L MCV 81.7 MCH 27.1 MCHC 33.2 RDW 15.3 Plt Count 270 MPV 9.3 Sodium Potassium Chloride Carbon Dioxide Anion Gap BUN Creatinine Estimated GFR Random Glucose Uric Acid Calcium Total Bilirubin AST ALT Alkaline Phosphatase Total Protein Albumin Ur Random Creatinine 116 U Random Total Protein 22.2 H Protein/Creatinin Ratio 0.19 H Blood Type O Positive Antibody Screen Positive H MTS Gel Crossmatch See Detail 04/27/18 09:28 WBC RBC Hgb Hct MCV MCH MCHC RDW Plt Count MPV Sodium 139 Potassium 3.8 Chloride 110 H Carbon Dioxide 18.3 L Anion Gap 11 BUN 11 Creatinine 0.62 Estimated GFR Greater than 89 Random Glucose 92 Uric Acid 4.8 Calcium 8.3 L Total Bilirubin 0.2 AST 11 L ALT 18 Alkaline Phosphatase 127 H Total Protein 6.4 Albumin 3.2 L Ur Random Creatinine U Random Total Protein Protein/Creatinin Ratio Blood Type Antibody Screen MTS Gel Crossmatch <Hayden Joyner - Last Filed: 04/27/18 13:01> Discharge Plan - Discharge Condition Condition: Stable - Discharge Details Discharge Comment: Patient care checked out to oncoming MD - Physicians Team Primary Care Provider: Primary Care Lizzy Sloan Attending Provider: Hayden Joyner Assessment and Plan - Plan Assessment: 38+ week intrauterine with elevated blood pressure, oligohydramnios and IUGR in a patient with a prior Plan: Admit for delivery by repeat Her preeclamptic panel appears normal including protein creatinine ratio suggesting gestational hypertension. She has a history of anti-Andrew antibody and 2 units of packed cells will be crossmatched for her surgery. <Hayden Joyner - Last Filed: 04/27/18 13:01>
[2018-04-27 10:08] LABS: Hematocrit 31.6 % (35.0-46.0); Hemoglobin 10.5 gm/dL (11.6-15.3); Mean Corpuscular HGB Conc 33.2 % (32.0-36.0); Mean Corpuscular Hemoglobin 27.1 pg (27.0-34.0); Mean Corpuscular Volume 81.7 fL (80.0-100.0); Mean Platelet Volume 9.3 fL (7.0-11.0); Platelet Count 270 th/mm3 (150-450); Red Blood Count 3.87 mil/mm3 (4.00-5.30); Red Cell Distribution Width 15.3 % (11.6-17.2); White Blood Count 10.8 th/mm3 (4.0-11.0)
[2018-04-27 10:26] LABS: Protein/Creatinine Ratio,Urine 0.19 (0.00-0.14)
[2018-04-27 10:41] LABS: Albumin 3.2 g/dL (3.4-5.0); Anion Gap 11 meq/L (5-15); Aspartate Aminotransferase 11 U/L (15-37); Blood Urea Nitrogen 11 mg/dL (7-18); Calcium 8.3 mg/dL (8.5-10.1); Carbon Dioxide 18.3 meq/L (21.0-32.0); Chloride 110 meq/L (98-107); Glomerular Filtration Rate Greater Than 89 mL/min (>89); Glucose,Random 92 mg/dL (74-106); Potassium 3.8 meq/L (3.5-5.1); Sodium 139 meq/L (136-145); Uric Acid 4.8 mg/dl (2.6-6.0)
[2018-04-27 10:45] LABS: Alanine Aminotransferase 18 U/L (10-53); Alkaline Phosphatase 127 U/L (45-117); Total Protein 6.4 g/dL (6.4-8.2)
[2018-04-27 11:16] LABS: Rubella IgG Antibody 395.8 IU/mL (10.0-500.0)
--- NOTE | 2018-04-27 11:27 | P.HPOB ---
Patient Name: Kenna Mercedes Date of : 89 Patient Status: Inpatient Attending Provider: Hayden Joyner Date: 04/27/18 09:21 Initialization Date: 04/27/18 09:21 History of Present Illness Primary Care Physician: No Primary Care Physician Chief Complaint: Vaginal pain History of Present Illness: 22-year-old comes in at 38 weeks and 2 days complaining of sharp shooting vaginal pain along with vaginal discharge that is somewhat malodorous in nature. She states that this been going on for about 2 days but it worsened today. She had limited care with a few visits in her first trimester then went to long term and when she came out of long term was unable to acquire continued care. She has had a previous section performed here at [facility] and is undecided on her mode of delivery whether it be a vaginal after versus a repeat . Patient is not sure of her previous ultrasound date but it was prior to 22 weeks as she went to long term at that time. Patient denies vaginal bleeding, contractions, rupture membranes. Weeks Gestation:: 38 Para: 1 : 3 Total # of Miscarriage(s): 1 - Inpatient Certification If this patient has been admitted as an Inpatient: I certify that the inpatient services were ordered in accordance with Medicare regulations governing the order. This includes certification that hospital inpatient services are reasonable and necessary and in the case of services not specified as inpatient-only under 42 CFR 419.22(n), that they are appropriately provided as inpatient services in accordance to with the 2-midnight benchmark under 43 CFR 412.3(e) <Niada Lawson - Last Filed: 04/27/18 09:50> Primary Care Physician: No Primary Care Physician - Inpatient Certification If this patient has been admitted as an Inpatient: I certify that the inpatient services were ordered in accordance with Medicare regulations governing the order. This includes certification that hospital inpatient services are reasonable and necessary and in the case of services not specified as inpatient-only under 42 CFR 419.22(n), that they are appropriately provided as inpatient services in accordance to with the 2-midnight benchmark under 43 CFR 412.3(e) <Hayden Joyner - Last Filed: 04/27/18 11:23> Review of Systems All other systems reviewed negative except as stated in HPI <Naida Lawson - Last Filed: 04/27/18 09:50> PMFSH - Medical / Surgical Hx Neg / Unobtainable Medical Problems Denied: Yes Surgical History: - Tobacco History Smoking Status: 1/2ppd - Alcohol History How Often Do You Have a Drink Containing Alcohol: Monthly or less - Substance Use History Substance History: No History of Abuse - Travel History History of Recent Travel: No Recent Travel in the [place] Within the Last 8 Weeks: No Recent Travel Out of the Country Within the Last 8 Weeks: No <Naida Lawson - Last Filed: 04/27/18 09:50> - Surgical History Surgical History: Surgical History (Last Updated 04/27/18 @ 11:21 by Hayden Joyner MD) History of delivery - Tobacco History Tobacco Use In Past 30 Days: Yes Smoking Status: Current every day smoker (One half pack per day) Tobacco Type: Cigarettes <Hayden Joyner - Last Filed: 04/27/18 11:23> Medications and Allergies Active Medications: Active Medications Sodium Chloride (Ns Flush) 2 ml IV.FLUSH PRN PRN PRN Reason: FLUSH AFTER USING IV ACCESS Sodium Chloride (Ns Flush) 2 ml IV.FLUSH BID [facility] <Naida Lawson - Last Filed: 04/27/18 09:50> Active Medications: Active Medications Sodium Chloride (Ns Flush) 2 ml IV.FLUSH PRN PRN PRN Reason: FLUSH AFTER USING IV ACCESS Sodium Chloride (Ns Flush) 2 ml IV.FLUSH BID [facility] <Hayden Joyner - Last Filed: 04/27/18 11:23> Allergies Allergy/AdvReac Type Severity Reaction Status Date / Time No Known Allergies Unknown Uncoded 10/04/17 23:14 Home Medications Medication Instructions Recorded Confirmed Type No Known Home Medications 04/27/18 04/27/18 History Exam Vital signs: Vital Signs 04/27/18 08:53 Temperature 98.1 F Respiratory Rate 20 - Constitutional no acute distress - Routine HEENT Exam Head: Present: normocephalic, atraumatic - Routine Neck Exam Present: supple, full ROM - Routine Respiratory Exam Present: CTA bilaterally - Routine Cardiovascular Exam Present: RRR - Routine Abdominal Exam Present: soft, normoactive bowel sounds - Routine Exam External: Present: normal urethra appearance, vulvar tenderness, discharge ( Obvious bacterial vaginosis is noted) Comments: Cervix is closed long high, vertex - Additional findings Additional findings: heart rate tracing notes baseline 140, accelerations are present with no decelerations evident and moderate variability making this a category 1 heart rate tracing External tocometer notes no contractions Patient is at 38 weeks 2 days with the prior section limited care and limited dating criteria Elevated blood pressures are noted and blood work was sent protein creatinine ratio was ordered group B strep and labs were collected Ultrasound with BPP is ordered <Naida Lawson - Last Filed: 04/27/18 09:50> Vital signs: Vital Signs 04/27/18 08:53 04/27/18 09:28 04/27/18 10:06 Temperature 98.1 F Pulse Rate 92 H 79 Respiratory Rate 20 Blood Pressure 147/94 H 155/101 H Intake & Output 04/26/18 04/27/18 04/27/18 18:59 06:59 18:59 Weight 250 kg <Hayden Joyner - Last Filed: 04/27/18 11:23> Results - Labs CBC & Chem 7: 04/27/18 09:28 04/27/18 09:28 Labs: Laboratory Results - last 24 hr 04/27/18 04/27/18 04/27/18 09:20 09:28 09:28 WBC 10.8 RBC 3.87 L Hgb 10.5 L Hct 31.6 L MCV 81.7 MCH 27.1 MCHC 33.2 RDW 15.3 Plt Count 270 MPV 9.3 Sodium Potassium Chloride Carbon Dioxide Anion Gap BUN Creatinine Estimated GFR Random Glucose Uric Acid Calcium Total Bilirubin AST ALT Alkaline Phosphatase Total Protein Albumin Ur Random Creatinine 116 U Random Total Protein 22.2 H Protein/Creatinin Ratio 0.19 H Blood Type O Positive Antibody Screen Positive H MTS Gel Crossmatch See Detail 04/27/18 09:28 WBC RBC Hgb Hct MCV MCH MCHC RDW Plt Count MPV Sodium 139 Potassium 3.8 Chloride 110 H Carbon Dioxide 18.3 L Anion Gap 11 BUN 11 Creatinine 0.62 Estimated GFR Greater than 89 Random Glucose 92 Uric Acid 4.8 Calcium 8.3 L Total Bilirubin 0.2 AST 11 L ALT 18 Alkaline Phosphatase 127 H Total Protein 6.4 Albumin 3.2 L Ur Random Creatinine U Random Total Protein Protein/Creatinin Ratio Blood Type Antibody Screen MTS Gel Crossmatch <Hayden Joyner - Last Filed: 04/27/18 11:23> Discharge Plan - Discharge Disposition Patient Disposition: 30 Still Patient - Discharge Details Discharge Comment: Patient care checked out to oncnicole IGLESIAS - Physicians Team ED Provider: Naida Lawson Primary Care Provider: Primary Care Lizzy Sloan Assessment and Plan - Plan Assessment: 38+ week intrauterine with elevated blood pressure, oligohydramnios and IUGR in a patient with a prior Plan: Admit for delivery by repeat Her preeclamptic panel appears normal including protein creatinine ratio suggesting gestational hypertension. She has a history of anti-Andrew antibody and 2 units of packed cells will be crossmatched for her surgery. <Hayden Joyner - Last Filed: 04/27/18 11:23>
[2018-04-27] MEDS ORDERED: Citric Acid/Sodium Citrate Liq 30 ML UDC PO SCH (11:30)
[2018-04-27 11:38] LABS: Amphetamine Urine With Conf Neg (Neg); Benzodiazepine Urine With Conf Neg (Neg)
[2018-04-27] MEDS ORDERED: Morphine Sulfate PF Inj 5 MG/10 ML Ampul ONE (11:38)
[2018-04-27 11:50] LABS: Hepatitis A IgM Antibody Nonreactive (Nonreactive)
[2018-04-27 11:51] LABS: Bacteria,Urine Occasional /hpf; Bilirubin,Urine Negative (Negative); Clarity,Urine Hazy (Clear); Color,Urine Yellow (Yellw/Straw); Glucose,Urine (UA) Negative (Negative); Leukocyte Esterase,Urine Small (Negative); Mucus,Urine Few /lpf (Occasional); Nitrite,Urine Negative (Negative); Specific Gravity,Urine 1.017 (1.002-1.035); Squamous Epithelial Cell,Urine 3 /hpf (0-5)
[2018-04-27 11:52] LABS: Hepatitits B Surface Antigen Nonreactive (Nonreactive)
[2018-04-27] MEDS ORDERED: Phenylephrine/NS 1000 MCG/10ML Syringe IV.PUSH ONE (11:58)
[2018-04-27] MEDS ORDERED: ceFAZolin 2 GM Premix Inj 2 GM/50 ML PIGGYBACK IV.SIG ONE (12:00)
[2018-04-27] MEDS ORDERED: Naloxone Inj 0.4 MG/ML Vial IV.PUSH PRN (12:00)
[2018-04-27] MEDS ORDERED: ceFAZolin Inj 2,000 MG in Sodium Chlor 0.9% Inj 80 ML IV.SIG SCH (12:00)
--- NOTE | 2018-04-27 13:10 | P.OP ---
- Preoperative Diagnosis (1) IUGR (intrauterine growth restriction) (2) History of - Postoperative Diagnosis (1) History of (2) IUGR (intrauterine growth restriction) Date of procedure: 04/27/18 Procedure: Repeat lower uterine segment transverse section Anesthesia: spinal Surgeon: Hayden Joyner MD Estimated blood loss (mL): 400 Pathology: other (Placenta, cord blood) Operation and Findings: The patient was taken to the operating room and after administration of a satisfactory spinal anesthetic was prepped and draped in the dorsal supine position. The skin was incised transversely along the previous scar in the subcutaneous tissue was sharply dissected away down to the level of the fascia which was nicked in the midline and extended bilaterally with scissors. Fascia was from the underlying muscle with sharp and blunt dissection. The muscle was bluntly divided in midline and the peritoneal cavity was bluntly entered. Bladder flap was created with sharp dissection. A transverse hysterotomy was created and membranes were encountered and ruptured with clear fluid noted. The vertex was elevated out of the pelvic inlet and delivered through the hysterotomy. The remainder the infant was delivered with fundal pressure and gentle traction. Delayed cord clamping was accomplished. The placenta was then delivered by fundal massage and gentle traction. The uterine cavity was wiped with a moist lap sponge. The hysterotomy was closed with a running suture of 0 Monocryl. After achieving excellent hemostasis normal tubes ovaries and uterus were noted. The paracolic gutters and posterior cul-de-sac were evacuated of amniotic fluid and blood. The fascia was then closed with #1 PDS. The subcutaneous tissue was closed with 3-0 Vicryl and the skin with 4-0 Vicryl and tissue glue. No complications. Sponge instrument needle counts were correct 3
[2018-04-27] MEDS ORDERED: Oxytocin 30 Units/500ml Premix 30 UNITS/500 ML BAG IV.SIG ONE (13:11)
[2018-04-27] MEDS ORDERED: Simethicone 80 MG Chew Tablet PO PRN (13:11)
[2018-04-27] MEDS ORDERED: Oxytocin 30 Units/500ml Premix 30 UNITS/500 ML BAG ONE (14:00)
[2018-04-27] MEDS ORDERED: Oxytocin 30 Units/500ml Premix 30 UNITS/500 ML BAG IV.SIG PRN (18:11)
[2018-04-28 05:50] LABS: Baso % (Auto) 0.2 % (0.0-2.0); Eos # (Auto) 0.1 th/mm3 (0.0-0.4); Hematocrit 29.4 % (35.0-46.0); Hemoglobin 9.6 gm/dL (11.6-15.3); Lymph # (Auto) 2.7 th/mm3 (1.0-4.8); Lymph % (Auto) 20.4 % (9.0-44.0); Mean Corpuscular HGB Conc 32.5 % (32.0-36.0); Mean Corpuscular Hemoglobin 26.6 pg (27.0-34.0); Mean Corpuscular Volume 81.9 fL (80.0-100.0); Mean Platelet Volume 9.2 fL (7.0-11.0); Mono # (Auto) 0.7 th/mm3 (0.0-0.9); Mono % (Auto) 5.3 % (0.0-8.0); Neut # (Auto) 9.8 th/mm3 (1.8-7.7); Neut % (Auto) 73.1 % (16.0-70.0); Platelet Count 254 th/mm3 (150-450); Red Blood Count 3.59 mil/mm3 (4.00-5.30); Red Cell Distribution Width 15.1 % (11.6-17.2); White Blood Count 13.3 th/mm3 (4.0-11.0)
--- NOTE | 2018-04-28 07:07 | P.PNOB ---
Subjective Post op day: 1 Interval history: Patient is a 22-year-old delivered at 38 weeks and 2 days. POD1 from repeat Csection complicated by GBS+ status, oligohydramnios and IUGR. She has not had a bowel movement or passed any gas. She is urinating without difficulties. She reports minimal discomfort of the abdomen. Her bleeding is about as much as a period with clots smaller than a quarter. She denies any chest pain, difficulty breathing, nausea, vomiting, dizziness, or leg pain. She willl be bottle feeding Contraception: Patient would like to discuss tubal ligation Objective Vital Signs/I&O: Vital Signs 04/27/18 08:53 04/27/18 09:28 04/27/18 10:06 Temperature 98.1 F Pulse Rate 92 H 79 Respiratory Rate 20 Blood Pressure 147/94 H 155/101 H 04/27/18 13:00 04/27/18 13:15 04/27/18 13:30 Temperature 97.7 F Pulse Rate 83 78 75 Respiratory Rate 18 18 18 Blood Pressure 138/79 138/74 154/72 H 04/27/18 13:45 04/27/18 14:45 04/27/18 19:30 Temperature 97.6 F 97.4 F L 98.1 F Pulse Rate 71 62 69 Respiratory Rate 18 16 20 Blood Pressure 138/65 117/71 143/88 H 04/27/18 21:00 04/27/18 23:00 04/28/18 00:55 Temperature 98.5 F Pulse Rate 69 Respiratory Rate 18 18 18 Blood Pressure 127/77 04/28/18 04:00 Temperature 98.0 F Pulse Rate 72 Respiratory Rate 18 Blood Pressure 121/67 Intake & Output 04/27/18 04/28/18 04/28/18 18:59 06:59 18:59 Weight 250 kg Result Diagrams: 04/28/18 05:07 04/27/18 09:28 Objective Remarks: GENERAL: Well-nourished, well-developed patient. CARDIOVASCULAR: Regular rate and rhythm without murmurs, gallops, or rubs. RESPIRATORY: Breath sounds equal bilaterally. No accessory muscle use. ABDOMEN/GI: Abdomen soft, non-tender, bowel sounds present. Incision: Clean, dry and intact. Fundus: Firm, non-tender below umbilicus. GENITOURINARY: Light to moderate bleeding. EXTREMITIES: Trace edema bilaterally, non pitting. No cyanosis, non-tender, without signs of DVT. Medications and IVs: Active Medications Citric Acid/Sodium Citrate (Sodium Citrate/Citric Acid Liq) 30 ml PO ASSISTANT CONTRO[employer]ER [facility] Stop: 05/01/18 11:29 Last Admin: 04/27/18 11:47 Dose: 30 ml Diphenhydramine HCl (Benadryl) 50 mg PO Q6H PRN PRN Reason: MILD TO MODERATE ITCHING Stop: 04/28/18 11:59 Last Admin: 04/28/18 01:09 Dose: 50 mg Diphenhydramine HCl (Benadryl Inj) 25 mg IV.PUSH Q6H PRN PRN Reason: MILD TO MODERATE ITCHING Stop: 04/28/18 11:59 Diphtheria/Pertussis/Tetanus Vacc (Boostrix Vaccine Inj) 0.5 ml IM .ONCE ONE Stop: 04/28/18 16:01 Lactated Ringer's (Lr 1000 Ml Inj) 1,000 mls @ 150 mls/hr IV.CONT .Q6H40M [facility] Lactated Ringer's (Lr 1000 Ml Inj) 1,000 mls @ 100 mls/hr IV.CONT .Q10H [facility] Stop: 04/28/18 14:10 Oxytocin (Pitocin 30 Units/Ns 500 Ml Premix) 30 units in 500 mls @ 100 mls/hr IV.SIG PRN PRN PRN Reason: Heavy bleeding Stop: 04/28/18 18:10 Ketorolac Tromethamine (Toradol Inj) 30 mg IM Q6H PRN PRN Reason: SEE LABEL COMMENTS Measles/Mumps/Rubella Vaccine Live (M-M-R Ii Vaccine Inj) 0.5 ml SQ .ONCE ONE Stop: 04/28/18 16:01 Miscellaneous Information ([facility] Nursing Information) 1 each OTHER UNSCH PRN PRN Reason: SEE LABEL COMMENTS Stop: 04/28/18 11:59 Miscellaneous Information (Misc Nursing Information) 1 each OTHER UNSCH PRN PRN Reason: SEE LABEL COMMENTS Stop: 04/28/18 11:59 Naloxone HCl (Narcan Inj) 0.4 mg IV.PUSH UNSCH PRN PRN Reason: SEE LABEL COMMENTS Stop: 04/28/18 11:59 Ondansetron HCl (Zofran Odt) 4 mg SL Q6H PRN PRN Reason: NAUSEA OR VOMITING Oxycodone/Acetaminophen (Percocet 5/325 Mg) 1 tab PO Q4H PRN PRN Reason: PAIN SCALE 3 TO 5 Oxycodone/Acetaminophen (Percocet 5/325 Mg) 2 tab PO Q4H PRN PRN Reason: PAIN SCALE 6 TO 10 Simethicone (Mylicon Chew) 80 mg PO QID PRN PRN Reason: FLATULENCE Sodium Chloride (Ns Flush) 2 ml IV.FLUSH BID [facility] Sodium Chloride (Ns Flush) 2 ml IV.FLUSH PRN PRN PRN Reason: FLUSH AFTER USING IV ACCESS Assessment and Plan - Plan 22yo on POD1 from repeat Csection at 38/2. Continue routine care. Encourage OOB Motrin and Percocet PRN for abdominal pain. Bacterial vaginosis- patient will be given Flagyl [id number] Pelvic rest for 6 weeks, nothing in the vagina, no sexual intercourse or tampons Showers vs baths for the next 6 weeks F/u in [address] Sandoval for incision check f/u in 6 weeks for care and discussion of tubal ligation Likely d/c within next 48 hours SDW John Joyner and Bebe Attestation Attestation: The exam, history, and the medical decision-making described in the above note were completed with the assistance of the resident physician. I reviewed and agree with the findings presented. I attest that I had a [id number] encounter with the patient on the same day, and personally performed and documented my assessment and findings in the medical record.
[2018-04-28] MEDS ORDERED: Senna/Docusate Sodium 8.6/50 MG Tablet PO PRN (07:13)
[2018-04-28] MEDS: metroNIDAZOLE 500 MG Tablet PO SCH ×2 (09:30→20:25)
[2018-04-28] MEDS ORDERED: Diphtheria/Tetanus/Pertussis Vaccine Inj 0.5 ML Syringe IM ONE (16:00)
[2018-04-28] MEDS ORDERED: Measles/Mumps/Rubella Vaccine Inj 0.5 ML Vial SQ ONE (16:00)
--- NOTE | 2018-04-29 07:24 | P.PNOB ---
Subjective Post op day: 2 Interval history: Ms. Mercedes is a 22-year-old delivered at 38 weeks and 2 days. POD2 from repeat Csection complicated by GBS+ status, oligohydramnios and IUGR. She is urinating without difficulties and had a bowel movement. She reports minimal discomfort of the abdomen. Her bleeding is about as much as a period with lessening clots. She denies any chest pain, difficulty breathing, nausea, vomiting, dizziness, or leg pain. She will be bottle feeding. She would like to go home today. Contraception: Patient would like to discuss tubal ligation Objective Vital Signs/I&O: Vital Signs 04/28/18 07:30 04/28/18 15:40 04/28/18 20:25 Temperature 98.1 F 98.2 F 98.3 F Pulse Rate 83 90 85 Respiratory Rate 12 12 20 Blood Pressure 128/64 130/67 145/87 H Result Diagrams: 04/28/18 05:07 04/27/18 09:28 Objective Remarks: GENERAL: Well-nourished, well-developed patient. CARDIOVASCULAR: Regular rate and rhythm without murmurs, gallops, or rubs. RESPIRATORY: Breath sounds decreased in R lower lung field, improved with increased patient effort. No wheezes or crackles. No accessory muscle use. ABDOMEN/GI: Abdomen soft, non-tender, bowel sounds present. Incision: Clean, dry and intact. Fundus: Firm, non-tender about 3 cm below umbilicus. GENITOURINARY: Light to moderate bleeding. EXTREMITIES: No cyanosis or edema, non-tender, without signs of DVT. Medications and IVs: Active Medications Citric Acid/Sodium Citrate (Sodium Citrate/Citric Acid Liq) 30 ml PO RN UTILIZATION MANAGEMENT [facility] Stop: 05/01/18 11:29 Last Admin: 04/27/18 11:47 Dose: 30 ml Lactated Ringer's (Lr 1000 Ml Inj) 1,000 mls @ 150 mls/hr IV.CONT .Q6H40M [facility] Ketorolac Tromethamine (Toradol Inj) 30 mg IM Q6H PRN PRN Reason: SEE LABEL COMMENTS Metronidazole (Flagyl) 500 mg PO BID [facility] Last Admin: 04/28/18 20:25 Dose: 500 mg Ondansetron HCl (Zofran Odt) 4 mg SL Q6H PRN PRN Reason: NAUSEA OR VOMITING Oxycodone/Acetaminophen (Percocet 5/325 Mg) 1 tab PO Q4H PRN PRN Reason: PAIN SCALE 3 TO 5 Oxycodone/Acetaminophen (Percocet 5/325 Mg) 2 tab PO Q4H PRN PRN Reason: PAIN SCALE 6 TO 10 Last Admin: 04/29/18 02:23 Dose: 2 tab Senna/Docusate Sodium (Araseli-Colace) 1 tab PO BID PRN PRN Reason: CONSTIPATION Simethicone (Mylicon Chew) 80 mg PO QID PRN PRN Reason: FLATULENCE Sodium Chloride (Ns Flush) 2 ml IV.FLUSH BID [facility]GEL Last Admin: 04/28/18 15:43 Dose: Not Given Sodium Chloride (Ns Flush) 2 ml IV.FLUSH PRN PRN PRN Reason: FLUSH AFTER USING IV ACCESS Assessment and Plan - Diagnosis (1) History of Code(s): Z98.891 - History of uterine scar from previous surgery Status: Acute - Plan 22yo on POD1 from repeat Csection at 38/2. Encourage OOB and sitting up when in bed to prevent atelectasis. Will order incentive spirometry. Motrin and Percocet PRN for abdominal pain. Bacterial vaginosis- patient will be given Flagyl [id number], to continue on d /c Pelvic rest for 6 weeks, nothing in the vagina, no sexual intercourse or tampons Showers vs baths for the next 6 weeks F/u in [address] Sandoval for incision check f/u in 6 weeks for care and discussion of tubal ligation Possible d/c today pending release of baby by pediatric team [facility] John Pham and [facility]be
[2018-04-29] MEDS: metroNIDAZOLE 500 MG Tablet PO SCH (08:56)
== END 2018-04-29 11:59 | disposition home or self-care (01) ==
LOC: HOBED 08:36 → H2E 11:01 → H1EA 14:58
PROVIDERS: ADMIT Obstetrics & Gynecology; ATTEND Obstetrics & Gynecology